=== PATIENT | female | born 1965 | race Caucasian/White ===

== ENCOUNTER 2019-10-31 02:47 | Inpatient (IN) | payer MEDICARE ==
[2019-10-31] MEDS ORDERED: Ketorolac Tromethamine 30 MG/ML VIAL ONE (04:23)
[2019-10-31] MEDS ORDERED: Oseltamivir 75 MG CAP PO SCH (06:15)
[2019-10-31 06:30] LABS: Troponin I 0.015 ng/mL (< 0.028)
[2019-10-31 06:31] LABS: ALT (SGPT) 11 U/L (8-55); AST (SGOT) 12 U/L (5-34); Albumin 3.5 g/dL (3.5-5.0); Alkaline Phosphatase 74 U/L (40-110); Anion Gap 13 mmol/L (10-20); BUN (Urea Nitrogen) 10 mg/dL (9.8-20.1); Bilirubin, Total 0.4 mg/dL (0.2-1.2); Calc. Creatinine Clearance 0 mL/min (70-130); Calcium 8.5 mg/dL (7.8-10.44); Carbon Dioxide 27 mmol/L (22-29); Chloride 97 mmol/L (98-107); Estimated GFR-MDRD 64; Globulin 2.8 g/dL (2.4-3.5); Glucose 112 mg/dL (70-105); Potassium 3.5 mmol/L (3.5-5.1); Protein, Total 6.3 g/dL (6.0-8.3); Sodium 133 mmol/L (136-145)
[2019-10-31 06:35] LABS: Lactic Acid 2.6 mmol/L (0.5-2.2)
[2019-10-31 06:58] LABS: #Basophils 0.1 thou/uL (0.0-0.2); #Lymphocytes 0.7 thou/uL (1.20-3.40); #Monocytes 0.3 thou/uL (0.11-0.59); #Neutrophils 8.4 thou/uL (1.40-6.50); %Basophils 0.6 % (0.0-1.0); %Eosinophils 0.5 % (0.0-10.0); %Lymphocytes 7.4 % (21.0-51.0); %Monocytes 3.1 % (0.0-10.0); %Neutrophils 88.4 % (42.0-75.0); Hemoglobin 14.2 g/dL (12.0-16.0); Mean Corpuscular HGB CONC 34.1 g/dL (32.0-36.0); Platelet Count 138 thou/uL (130-400); RBC Distribution Width 13.2 % (11.5-14.5); Red Blood Cell (RBC) Count 4.73 mill/uL (4.20-5.40); White Blood Cell (WBC) Count 9.5 thou/uL (4.8-10.8)
--- NOTE | 2019-10-31 07:49 | RAD ---
XR Chest 1 View Portable HISTORY: Influenza COMPARISON: None FINDINGS: The heart size is normal. The lungs are well expanded without focal areas of consolidation, pneumothorax or pleural effusions. IMPRESSION: No radiographic evidence of acute cardiopulmonary process.
[2019-10-31] MEDS ORDERED: Guaifenesin DM 100-10/5 ML UDCUP PO PRN (08:56)
[2019-10-31] MEDS ORDERED: Potassium Chloride 20 MEQ TAB PO SCH (09:00)
[2019-10-31] MEDS ORDERED: THYROID PORK 120 MG PO SCH (09:00)
--- NOTE | 2019-10-31 09:03 | PDOC.HHP ---
Hospitalist HPI - History of Present Illness Fever, cough History of Present Illness: 54/F recently diagnosed with strep throat infection presents to Emergency Department for above complaint. Patient reports developing fever last night, Tmax 103F and productive cough. Spouse reports that she was also lethargic at that time. Denies any focal weakness or tremors. He treated her fever with tylenol and called EMS. Patient denies any neck stiffness, SOB and chest pain. Reports some mild lower abdominal pain, denies any N/V/D or dysuria. Patient states that she completed Amoxicillin prescription yesterday, taking it for 7 days total. ED Course: T 103.2F BP 169/74 HR 131 HR RR 21 Sp02 93% RA Flu swab + Influenza A CXR negative for any acute cardiopulmonary process LA 2.6 Given Tamiflu 3L NS Hospitalist ROS - Review of Systems Constitutional: reports: fever, chills, malaise Eyes: denies: pain, vision change, conjunctivae inflammation, eyelid inflammation, redness, other ENT: denies: ear pain, ear discharge, nose pain, nose discharge, nose congestion , mouth pain, mouth swelling, throat pain, throat swelling, other Respiratory: reports: cough, sputum. denies: shortness of breath, hemoptysis Cardiovascular: denies: chest pain, palpitations, orthopnea, paroxysmal noc. dyspnea, edema, light headedness, other Gastrointestinal: reports: abdominal pain. denies: nausea, vomiting, diarrhea, constipation Genitourinary: denies: dysuria, frequency, incontinence, hematuria, retention, other Musculoskeletal: denies: neck pain, shoulder pain, back pain Skin: denies: rash, lesions Neurological: reports: weakness (generalized weakness). denies: numbness, change in speech, seizures Hospitalist History - Past Medical History Cardiac: reports: HTN Pulmonary: reports: no pertinent history DATA CENTER CONSULTANT: reports: Migraine (treated w/ Depakote) Gastrointestinal: reports: no pertinent history Heme/Onc: reports: no pertinent history Hepatobiliary: reports: no pertinent history Psych: reports: no pertinent history Musculoskeletal: reports: no pertinent history Rheumatologic: reports: no pertinent history Infectious Disease: reports: no pertinent history Renal/: reports: Other (Born with only right kidney) Endocrine: reports: Hypothyroidism Dermatology: reports: no pertinent history - Past Surgical History Past Surgical History: reports: Hysterectomy, Other (Ureteral re-implants x 2) - Family History Family History: reports: no pertinent history - Social History Smoking Status: Never smoker Alcohol: reports: None Living Situation: With Family (Recently moved to [place] 5 months ago) Activity level: independent ambulation - Exam General Appearance: NAD Eye: PERRL, anicteric sclera ENT: normocephalic atraumatic Neck: supple, no JVD, no thyromegaly, no lymphadenopathy Heart: RRR, no murmur, no gallops, no rubs, normal peripheral pulses Respiratory: CTAB, no wheezes, no rales, no ronchi Gastrointestinal: soft, non-tender, non-distended, normal bowel sounds, no hepatomegaly, no splenomegaly, no guarding, no rigidity Extremities: no cyanosis, no clubbing, no edema Skin: no lesions, no rashes Neurological: cranial nerve grossly intact, no focal deficits Musculoskeletal: normal tone Psychiatric: normal affect, A&O x 3 Hospitalist Results - Labs Result Diagrams: 10/31/19 03:12 10/31/19 03:12 Lab results: WBC 9.5 thou/uL (4.8-10.8) 10/31/19 03:12 Hgb 14.2 g/dL (12.0-16.0) 10/31/19 03:12 Hct 41.6 % (36.0-47.0) 10/31/19 03:12 MCV 88.0 fL (78.0-98.0) 10/31/19 03:12 Plt Count 138 thou/uL (130-400) 10/31/19 03:12 Neutrophils % 88.4 % (42.0-75.0) H 10/31/19 03:12 Sodium 133 mmol/L (136-145) L 10/31/19 03:12 Potassium 3.5 mmol/L (3.5-5.1) 10/31/19 03:12 Chloride 97 mmol/L (98-107) L 10/31/19 03:12 Carbon Dioxide 27 mmol/L (22-29) 10/31/19 03:12 BUN 10 mg/dL (9.8-20.1) 10/31/19 03:12 Creatinine 0.91 mg/dL (0.6-1.1) 10/31/19 03:12 Glucose 112 mg/dL (70-105) H 10/31/19 03:12 Lactic Acid 1.0 mmol/L (0.5-2.2) 10/31/19 08:25 Calcium 8.5 mg/dL (7.8-10.44) 10/31/19 03:12 Total Bilirubin 0.4 mg/dL (0.2-1.2) 10/31/19 03:12 AST 12 U/L (5-34) 10/31/19 03:12 ALT 11 U/L (8-55) 10/31/19 03:12 Alkaline Phosphatase 74 U/L (40-110) 10/31/19 03:12 Troponin I 0.015 ng/mL (< 0.028) 10/31/19 03:12 Serum Total Protein 6.3 g/dL (6.0-8.3) 10/31/19 03:12 Albumin 3.5 g/dL (3.5-5.0) 10/31/19 03:12 Laboratory Tests 10/31/19 10/31/19 03:12 03:12 Lactic Acid 2.6 H Troponin I 0.015 - EKG Interpretation EKG: Sinus Tachycardia - Radiology Interpretation Chest x-ray Status: report reviewed by me Hospitalist H&P A/P - Plan Plan: Influenza A Sepsis, most likely secondary to flu A Dehydration HTN hypothyroidism Renal agenesis, born one kidney Migraine headaches Plan: admit to medical floor Droplet precautions Continue IV fluids Continue Tamiflu Replace Potassium Fever control Mucinex and tessalon and Nebs prn Recheck LA level Awaiting UA results Walking program HH diet Restart home medications Avoid nephrotoxic medications DVT and GI prophylaxis Full Code
[2019-10-31] MEDS ORDERED: Potassium Chloride 20 MEQ TAB ONE (09:58)
[2019-10-31] MEDS ORDERED: Famotidine 20 MG TAB ONE (09:58)
[2019-10-31] MEDS: Sodium Chloride 0.9% 1,000 ML IV SCH ×3 (10:15→22:15)
[2019-10-31] MEDS: Famotidine 20 MG TAB PO SCH ×2 (10:15→19:30)
[2019-10-31] MEDS: Thyroid 60 MG TAB PO SCH (10:15)
[2019-10-31] MEDS: Ondansetron PF 4 MG/2 ML Vial IVP PRN (11:00)
[2019-10-31] MEDS ORDERED: Ondansetron ODT 4 MG TAB ONE (11:23)
[2019-10-31] MEDS: Ondansetron ODT 4 MG TAB PO PRN ×2 (11:56→19:29)
[2019-10-31 15:27] VITALS: BMI 27.8
[2019-10-31] MEDS: Acetaminophen 325 MG TAB PO PRN ×2 (16:45→22:20)
[2019-10-31] MEDS: Oseltamivir 75 MG CAP PO SCH (19:30)
[2019-10-31] MEDS ORDERED: Ibuprofen 200 MG TAB PO PRN (19:31)
[2019-10-31] MEDS ORDERED: Diabetic Tussin 200 MG/10 ML UDCUP PO PRN (19:40)
[2019-10-31 19:59] LABS: Bilirubin Negative (Negative); Blood, Urine Negative (Negative); Clarity Clear (Clear); Glucose, Urine (Dipstick) Normal (Negative); Leukocyte Negative Leu/uL (Negative); Nitrite Negative (Negative); Protein, Urine (Dipstick) 10 mg/dL (Neg-Trace); Urobilinogen Normal mg/dL (Less than 2)
[2019-10-31] MEDS ORDERED: cefTRIAXone\\ROCEPHIN 2 GM in Sodium Chloride 0.9% 100 ML IVPB SCH (20:00)
[2019-10-31] MEDS: Magnesium Chloride 64 MG TAB PO SCH (20:45)
[2019-10-31] MEDS: guaiFENesin ER 600 MG TAB PO SCH (20:46)
[2019-10-31] MEDS: Cefepime 1 GM in Sodium Chloride 0.9% 100 ML IVPB SCH (20:47)
[2019-10-31] MEDS ORDERED: Doxycycline 100 MG CAP PO SCH (21:00)
[2019-10-31] MEDS: Vancomycin HCl 1 GM in Premix Bag 1 BAG IVPB SCH (22:21)
--- NOTE | 2019-10-31 22:58 | PRG ---
DATE OF SERVICE: 10/31/2019 CHIEF COMPLAINT: Generalized weakness with fever. HISTORY OF PRESENT ILLNESS: The patient is a 54-year-old female with recent upper respiratory tract infection presented to the emergency room with fever along with productive cough. Her maximum temperature was 103 degree Fahrenheit. Her workup was positive for influenza A. Chest x-ray was negative. Lactic acid was 2.6. She continues to run fever at this time. PHYSICAL EXAMINATION: VITAL SIGNS: On examination, vital signs were reviewed. LUNGS: Showed scattered rhonchi without significant wheezing. There was scattered rales as well. HEART: S1 and S2 present. Tachycardic. ABDOMEN: Soft. Bowel sounds present. EXTREMITIES: No edema or calf tenderness. LABORATORY DATA: Labs were reviewed. Repeat lactic acid was 1.0. Troponin was negative. I reviewed the chest x-ray and the EKG, which showed sinus tachycardia. I evaluated the patient and agree with the history and physical outlined by nurse practitioner Devan Otero. I agree with the assessment and plan. She has sepsis secondary to influenza A with suspected pneumonia. We will repeat blood cultures and start empiric antibiotics due to persistent fever. We will consult Infectious Disease. The patient will require 2 to 3 days for stabilization. Job ID: [id number]
[2019-11-01] MEDS: Sodium Chloride 0.9% 1,000 ML IV SCH ×3 (04:30→15:25)
--- NOTE | 2019-11-01 08:56 | RAD ---
CHEST 2 VIEWS: HISTORY: Persistent fever. Evaluate for pneumonia. COMPARISON: None. FINDINGS: Lungs without confluent airspace consolidation, pneumothorax, or effusion. Cardiac silhouette and me diastinal contours are within normal limits. No acute osseous abnormality. IMPRESSION: 1. No acute intrathoracic abnormality. 2. Evidence of prior ventral repair with hernia repair tacks appreciated. POS: TPC
[2019-11-01] MEDS ORDERED: Amlodipine 5 MG TAB PO SCH ×2 (09:00)
[2019-11-01] MEDS ORDERED: FLU VACC QS2019-20(6MOS UP)/PF 60 MCG/0.5 ML SYRINGE IM ONE (09:00)
[2019-11-01] MEDS: Cefepime 1 GM in Sodium Chloride 0.9% 100 ML IVPB SCH ×2 (09:07→20:46)
[2019-11-01] MEDS: Famotidine 20 MG TAB PO SCH ×2 (09:09→20:48)
[2019-11-01] MEDS: Saccharomyces boulardii 250 MG CAP PO SCH (09:09)
[2019-11-01] MEDS: guaiFENesin ER 600 MG TAB PO SCH ×2 (09:10→20:48)
[2019-11-01] MEDS: Oseltamivir 75 MG CAP PO SCH ×2 (09:10→20:48)
[2019-11-01] MEDS: Thyroid 60 MG TAB PO SCH (09:11)
[2019-11-01] MEDS: Magnesium Chloride 64 MG TAB PO SCH (09:12)
[2019-11-01] MEDS ORDERED: Sodium Chloride 0.9% 500 ML IV SCH (09:30)
[2019-11-01] MEDS ORDERED: Magnesium 2 GM/50 ML 2 GM in Premix Bag 1 BAG IVPB SCH (09:30)
[2019-11-01] MEDS ORDERED: Magnesium Sulfate 2 GM in Sodium Chloride 0.9% 100 ML IVPB SCH (09:30)
[2019-11-01 09:47] LABS: ALT (SGPT) 19 U/L (8-55); AST (SGOT) 23 U/L (5-34); Albumin 2.9 g/dL (3.5-5.0); Alkaline Phosphatase 60 U/L (40-110); Anion Gap 9 mmol/L (10-20); BUN (Urea Nitrogen) 13 mg/dL (9.8-20.1); Bilirubin, Total 0.3 mg/dL (0.2-1.2); Calc. Creatinine Clearance 104 mL/min (70-130); Calcium 7.7 mg/dL (7.8-10.44); Carbon Dioxide 23 mmol/L (22-29); Chloride 111 mmol/L (98-107); Estimated GFR-MDRD 80; Globulin 2.4 g/dL (2.4-3.5); Glucose 130 mg/dL (70-105); Potassium 3.7 mmol/L (3.5-5.1); Protein, Total 5.3 g/dL (6.0-8.3); Sodium 139 mmol/L (136-145)
[2019-11-01] MEDS: Vancomycin HCl 1 GM in Premix Bag 1 BAG IVPB SCH ×2 (09:51→22:51)
[2019-11-01 09:54] LABS: #Monocytes 0.3 thou/uL (0.11-0.59); #Neutrophils 3.5 thou/uL (1.40-6.50); %Basophils 0.1 % (0.0-1.0); %Eosinophils 0.1 % (0.0-10.0); %Lymphocytes 20.4 % (21.0-51.0); %Monocytes 5.6 % (0.0-10.0); %Neutrophils 73.8 % (42.0-75.0); Hemoglobin 11.5 g/dL (12.0-16.0); Mean Corpuscular HGB CONC 33.7 g/dL (32.0-36.0); Mean Corpuscular Hemoglobin 30.1 pg (27.0-31.0); Mean Corpuscular Volume 89.2 fL (78.0-98.0); Mean Platelet Volume 8.7 fL (7.4-10.4); Platelet Count 106 thou/uL (130-400); Platelet Morphology Comment Appears Decreased; RBC Distribution Width 13.3 % (11.5-14.5); RBC Morphology Normal; Red Blood Cell (RBC) Count 3.83 mill/uL (4.20-5.40); White Blood Cell (WBC) Count 4.8 thou/uL (4.8-10.8)
[2019-11-01] MEDS ORDERED: Dextrose 5 %-0.45 % NaCl 1,000 ML IV SCH (13:00)
[2019-11-01] MEDS ORDERED: Zolpidem Tartrate 5 MG TAB PO PRN (13:39)
--- NOTE | 2019-11-01 16:19 | CON ---
DATE OF CONSULTATION: 11/01/2019 REASON FOR CONSULTATION: Possible sepsis. 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 She also had some sore throat at the beginning of this syndrome and went to a doctor and was given oral antimicrobial therapy for presumptive streptococcal pharyngitis. The patient did not improve, and then things got worse, and she was brought in with myalgias, persistence of cough with some sputum production, and intermittent headaches. No visual symptoms. No earache or sore throat anymore. No back pain. No chest pain. No abdominal pain. No genitourinary symptoms. No diarrhea, hematemesis, or melena. No joint symptoms. MEDICAL HISTORY: Hypothyroidism; hypertension; single kidney, congenital with ureteral reimplants; hysterectomy; and history of anxiety. SOCIAL HISTORY: Never smoker. Lives in [place]. She is disabled. ALLERGIES: 1. MORPHINE. 2. PHENERGAN. MEDICATIONS LIST: 1. P.R.N. medications. 2. Cefepime. 3. Pepcid. 4. Robitussin. 5. Mucinex. 6. Motrin. 7. Oseltamivir. 8. Vancomycin. PHYSICAL EXAMINATION: VITAL SIGNS: T-max 103, she is now 97.9. BP 99/64, pulse 84, respirations 20, O2 saturation 95% SKIN: Normal. The patient has peripheral IV access. She is voiding in the toilet. LYMPHATICS: No lymphadenopathy. HEENT: Ocular movements are conjugate. Sclerae are white. Pupils are somewhat constricted. Oral cavity is normal. Numerous teeth in place, in fairly decent shape. NECK: Supple. No jugular vein distention. LUNGS: Symmetric breath sounds. Inspiratory crackles in the right base. CARDIAC: S1 and S2. Regular rate. No S3 or S4. ABDOMEN: Soft. Not distended or tender. No ascites. No bladder distention. EXTREMITIES: No joint inflammatory activity. No edema. Pulses are 1+ in dorsalis pedis. Moves all extremities equally. Plantar responses are flexor. No clonus. NEUROLOGIC: She is quite somnolent, but is easily arousable and is oriented. Speech, somewhat sluggish from her drowsiness. LABORATORY DATA: White cell count 9.5 and 4.8, hemoglobin 11.5, platelets 106 with 73% neutrophils. Sodium 133, creatinine 0.91. Transaminases were normal. Albumin 3.5. Urinalysis was normal. Blood cultures, one set with coagulase-negative Staphylococcus, likely contaminant. Influenza A and B were positive for A antigen. Chest x-ray, no acute intrathoracic abnormality. ASSESSMENT: History of single kidney and respiratory illness for 8 days now, which is probably influenza A infection plus/minus superimposed bacterial pneumonia. We will check procalcitonin. If normal, then probably discontinue antimicrobials tomorrow if she is clinically stable. Continue monitoring blood cultures. The one set positive is probably contaminant. Continue Tamiflu, although at this late stage, the efficacy is reduced. Job ID: [id number] MTDD
--- NOTE | 2019-11-01 16:55 | PDOC.HOSPP ---
- Subjective Encounter Date: 11/01/19 Encounter Time: 14:30 - Objective Vital Signs & Weight: Vital Signs (12 hours) Temp Pulse Resp BP Pulse Ox 11/01/19 12:00 97.2 F L 84 20 99/64 95 11/01/19 09:10 81 11/01/19 09:00 92 L 11/01/19 07:56 97.9 F 81 20 97/59 L 91 L Weight Weight 172 lb 9.6 oz I&O: 10/31/19 11/01/19 11/02/19 06:59 06:59 06:59 Intake Total 1500 Output Total 600 Balance 900 Result Diagrams: 11/01/19 09:19 11/01/19 09:19 Hospitalist ROS - Review of Systems Constitutional: denies: fever, chills Respiratory: reports: cough, shortness of breath, hemoptysis Cardiovascular: reports: chest pain, palpitations Gastrointestinal: reports: nausea, vomiting, abdominal pain, diarrhea - Medication Medications: Active Medications Generic Name Dose Route Start Last Admin Trade Name Freq PRN Reason Stop Dose Admin Acetaminophen 650 mg 10/31/19 08:43 10/31/19 22:20 Tylenol PO 650 mg Q4H PRN Administration Headache/Fever/Mild Pain (1-3) Divalproex Sodium 250 mg 10/31/19 09:00 11/01/19 11:19 Depakote Er PO 250 mg DAILY NORBERT Administration Famotidine 20 mg 10/31/19 09:00 11/01/19 09:09 Pepcid PO 20 mg BID NORBERT Administration Guaifenesin 600 mg 10/31/19 21:00 11/01/19 09:10 Mucinex PO 600 mg Q12HR NORBERT Administration Vancomycin HCl 1 gm/ Device 200 mls @ 200 mls/hr 10/31/19 21:00 11/01/19 09: 51 IVPB 200 mls Q12HR NORBERT Administration Cefepime HCl 1 gm/ Sodium 100 mls @ 200 mls/hr 10/31/19 20:00 11/01/19 09:07 Chloride IVPB 100 mls 0800,2000 NORBERT Administration Sodium Chloride 1,000 mls @ 75 mls/hr 11/01/19 13:45 11/01/19 15:25 Normal Saline 0.9% IV Not Given .[id number] NORBERT Ibuprofen 400 mg 10/31/19 19:31 10/31/19 19:41 Motrin PO 400 mg Q6H PRN Administration Pain Ondansetron HCl 4 mg 10/31/19 11:39 10/31/19 19:29 Zofran Odt PO 4 mg Q6H PRN Administration Nausea/Vomiting Oseltamivir Phosphate 75 mg 10/31/19 21:00 11/01/19 09:10 Tamiflu PO 11/04/19 21:01 75 mg BID NORBERT Administration Saccharomyces Boulardii 250 mg 11/01/19 09:00 11/01/19 09:09 Florastor PO 250 mg DAILY NORBERT Administration Thyroid 120 mg 10/31/19 09:00 11/01/19 09:11 [place] Thyroid PO 120 mg DAILY NORBERT Administration - Exam General Appearance: NAD Heart: RRR, no murmur, no gallops, no rubs Respiratory: CTAB, no wheezes, no rales, no ronchi Gastrointestinal: soft, non-tender, non-distended, no guarding, no rigidity Psychiatric: normal affect, normal behavior Hosp A/P - Plan Afebrile today, Influenza A Sepsis, most likely secondary to flu A Suspected PNA Dehydration HTN hypothyroidism Renal agenesis, born one kidney Migraine headaches Plan: Started broad spectrum abx Awaiting repeat BC results Consult ID Continue Tamiflu and IV fluids Avoid nephrotoxic medications Continue DVT and GI prophylaxis Full Code
[2019-11-01] MEDS: Acetaminophen 325 MG TAB PO PRN ×2 (17:23→22:58)
[2019-11-01] MEDS: Baclofen 10 MG TAB PO SCH (20:48)
[2019-11-01] MEDS: Benzonatate 100 MG CAP PO PRN (22:58)
[2019-11-02 05:46] LABS: #Lymphocytes 1.5 thou/uL (1.20-3.40); #Monocytes 0.3 thou/uL (0.11-0.59); #Neutrophils 2.6 thou/uL (1.40-6.50); %Basophils 0.5 % (0.0-1.0); %Eosinophils 0.4 % (0.0-10.0); %Lymphocytes 33.2 % (21.0-51.0); %Monocytes 6.7 % (0.0-10.0); %Neutrophils 59.2 % (42.0-75.0); Hemoglobin 11.9 g/dL (12.0-16.0); Mean Corpuscular HGB CONC 33.1 g/dL (32.0-36.0); Mean Corpuscular Hemoglobin 30.1 pg (27.0-31.0); Mean Platelet Volume 8.7 fL (7.4-10.4); Platelet Count 105 thou/uL (130-400); RBC Distribution Width 13.4 % (11.5-14.5); Red Blood Cell (RBC) Count 3.95 mill/uL (4.20-5.40); White Blood Cell (WBC) Count 4.5 thou/uL (4.8-10.8)
[2019-11-02 06:06] LABS: ALT (SGPT) 14 U/L (8-55); AST (SGOT) 19 U/L (5-34); Albumin 2.9 g/dL (3.5-5.0); Alkaline Phosphatase 58 U/L (40-110); Anion Gap 8 mmol/L (10-20); BUN (Urea Nitrogen) 9 mg/dL (9.8-20.1); Bilirubin, Total 0.2 mg/dL (0.2-1.2); Calc. Creatinine Clearance 109 mL/min (70-130); Calcium 7.7 mg/dL (7.8-10.44); Carbon Dioxide 25 mmol/L (22-29); Chloride 111 mmol/L (98-107); Estimated GFR-MDRD 85; Globulin 2.5 g/dL (2.4-3.5); Glucose 88 mg/dL (70-105); Protein, Total 5.4 g/dL (6.0-8.3); Sodium 140 mmol/L (136-145)
[2019-11-02] MEDS: Sodium Chloride 0.9% 1,000 ML IV SCH ×2 (07:00→13:00)
[2019-11-02 08:06] LABS: Vancomycin, Trough 13.2 ug/mL
[2019-11-02] MEDS: Thyroid 60 MG TAB PO SCH (09:07)
[2019-11-02] MEDS: Baclofen 10 MG TAB PO SCH ×2 (09:07→20:05)
[2019-11-02] MEDS: Famotidine 20 MG TAB PO SCH ×2 (09:07→20:05)
[2019-11-02] MEDS: guaiFENesin ER 600 MG TAB PO SCH ×2 (09:07→20:06)
[2019-11-02] MEDS: Oseltamivir 75 MG CAP PO SCH ×2 (09:07→20:07)
[2019-11-02] MEDS: Cefepime 1 GM in Sodium Chloride 0.9% 100 ML IVPB SCH ×2 (09:08→20:04)
[2019-11-02] MEDS: Saccharomyces boulardii 250 MG CAP PO SCH (09:08)
[2019-11-02] MEDS: Vancomycin HCl 1.25 GM in Sodium Chloride 0.9% 250 ML 250 ML IVPB SCH ×2 (10:17→21:05)
--- NOTE | 2019-11-02 12:04 | PDOC.HOSPP ---
- Subjective Encounter Date: 11/02/19 Encounter Time: 11:05 Subjective: Patient seen and examined for sepsis, influenza A and clinical Pneumonia. Reports feeling better. Reports productive cough, Denies fever, chills, SOB, chest pain. No new complaints. No overnight events. - Objective Vital Signs & Weight: Vital Signs (12 hours) Temp Pulse Resp BP Pulse Ox 11/02/19 09:20 93 L 11/02/19 09:18 93 L 11/02/19 08:00 98.9 F 78 18 132/84 11/02/19 04:00 97.9 F Weight Weight 172 lb 9.6 oz I&O: 11/01/19 11/02/19 11/03/19 06:59 06:59 06:59 Intake Total 1500 2150 Output Total 600 Balance 900 2150 Result Diagrams: 11/02/19 05:11 11/02/19 05:11 Hospitalist ROS - Review of Systems Constitutional: denies: fever, chills, sweats, weakness, malaise, other Respiratory: reports: cough, sputum. denies: shortness of breath Cardiovascular: denies: chest pain, palpitations, orthopnea, paroxysmal noc. dyspnea, edema, light headedness, other Gastrointestinal: denies: nausea, vomiting, abdominal pain, diarrhea, constipation, melena, hematochezia, other - Medication Medications: Active Medications Generic Name Dose Route Start Last Admin Trade Name Freq PRN Reason Stop Dose Admin Acetaminophen 650 mg 10/31/19 08:43 11/01/19 22:58 Tylenol PO 650 mg Q4H PRN Administration Headache/Fever/Mild Pain (1-3) Baclofen 10 mg 11/01/19 21:00 11/02/19 09:07 Lioresal PO Not Given BID NORBERT Benzonatate 100 mg 10/31/19 08:56 11/01/19 22:58 Tessalon PO 100 mg TIDPRN PRN Administration Cough Divalproex Sodium 250 mg 10/31/19 09:00 11/02/19 09:07 Depakote Er PO 250 mg DAILY NORBERT Administration Famotidine 20 mg 10/31/19 09:00 11/02/19 09:07 Pepcid PO 20 mg BID NORBERT Administration Guaifenesin 600 mg 10/31/19 21:00 02/13/20 09:07 Mucinex PO 600 mg Q12HR NORBERT Administration Cefepime HCl 1 gm/ Sodium 100 mls @ 200 mls/hr 10/31/19 20:00 11/02/19 09:08 Chloride IVPB 100 mls 0800,2000 NORBERT Administration Sodium Chloride 1,000 mls @ 75 mls/hr 11/01/19 13:45 11/02/19 07:00 Normal Saline 0.9% IV 1,000 mls .[id number] NORBERT Administration Vancomycin HCl 1.25 gm/ Sodium 250 mls @ 166.667 mls/hr 11/02/19 09:00 10:17 Chloride IVPB 250 mls Q12HR NORBERT Administration Ibuprofen 400 mg 10/31/19 19:31 10/31/19 19:41 Motrin PO 400 mg Q6H PRN Administration Pain Ondansetron HCl 4 mg 10/31/19 11:39 10/31/19 19:29 Zofran Odt PO 4 mg Q6H PRN Administration Nausea/Vomiting Oseltamivir Phosphate 75 mg 10/31/19 21:00 11/02/19 09:07 Tamiflu PO 11/04/19 21:01 75 mg BID NORBERT Administration Quetiapine Fumarate 150 mg 11/01/19 21:00 11/01/19 20:47 Seroquel PO 150 mg HS NORBERT Administration Saccharomyces Boulardii 250 mg 11/01/19 09:00 11/02/19 09:08 Florastor PO 250 mg DAILY NORBERT Administration Sertraline HCl 100 mg 11/02/19 09:00 11/02/19 09:08 Zoloft PO 100 mg DAILY NORBERT Administration Thyroid 120 mg 10/31/19 09:00 11/02/19 09:07 [place] Thyroid PO 120 mg DAILY NORBERT Administration - Exam General Appearance: NAD, awake alert Heart: RRR, no murmur, no gallops, no rubs, normal peripheral pulses Respiratory: no wheezes, no ronchi, rales (scattered rales bilaterally) Gastrointestinal: soft, non-tender, non-distended, normal bowel sounds Psychiatric: normal affect, A&O x 3 Hosp A/P - Plan Afebrile today, Influenza A Sepsis, most likely secondary to flu A Clinical Pneumonia, suspected gram negative bacteria Dehydration, improving HTN, chronic hypothyroidism, chronic Renal agenesis, born one kidney Migraine headaches, chronic Plan: Continue abx Appreciate ID input Preliminary BC, no growth Continue Tamiflu and IV fluids Tessalon and guaifenesin prn Avoid nephrotoxic medications Continue DVT and GI prophylaxis
[2019-11-02] MEDS: Acetaminophen 325 MG TAB PO PRN (16:59)
--- NOTE | 2019-11-02 18:24 | RAD ---
Chest AP view INDICATION: History of influenza pneumonia COMPARISON: November 01, 2019 FINDINGS: Lungs:There is been interval development of airspace opacity in the right upper lobe consistent with developing right upper lobe pneumonia. Cardiac silhouette:The cardiomediastinal silhouette appears within normal limits. Pulmonary vasculature:Normal Pleural spaces:No pleural effusion or pneumothorax is demonstrated. Upper abdomen:Surgical mesh of the upper abdomen Osseous structures: No acute osseous abnormality. Additional findings:None. IMPRESSION: Developing right upper lobe pneumonia. Recommend radiographic follow-up to resolution.
[2019-11-03 05:58] LABS: #Lymphocytes 1.6 thou/uL (1.20-3.40); #Monocytes 0.3 thou/uL (0.11-0.59); #Neutrophils 1.7 thou/uL (1.40-6.50); %Basophils 0.5 % (0.0-1.0); %Eosinophils 1.1 % (0.0-10.0); %Lymphocytes 44.4 % (21.0-51.0); %Monocytes 7.8 % (0.0-10.0); %Neutrophils 46.2 % (42.0-75.0); Mean Corpuscular HGB CONC 33.6 g/dL (32.0-36.0); Mean Corpuscular Hemoglobin 30.2 pg (27.0-31.0); Mean Corpuscular Volume 89.8 fL (78.0-98.0); Mean Platelet Volume 9.3 fL (7.4-10.4); Platelet Count 88 thou/uL (130-400); RBC Distribution Width 13.3 % (11.5-14.5); Red Blood Cell (RBC) Count 3.65 mill/uL (4.20-5.40); White Blood Cell (WBC) Count 3.6 thou/uL (4.8-10.8)
[2019-11-03 06:13] LABS: Anion Gap 8 mmol/L (10-20); BUN (Urea Nitrogen) 8 mg/dL (9.8-20.1); Calc. Creatinine Clearance 114 mL/min (70-130); Calcium 7.8 mg/dL (7.8-10.44); Carbon Dioxide 28 mmol/L (22-29); Chloride 109 mmol/L (98-107); Estimated GFR-MDRD 90; Glucose 89 mg/dL (70-105); Potassium 4.1 mmol/L (3.5-5.1); Sodium 141 mmol/L (136-145)
[2019-11-03] MEDS: Cefepime 1 GM in Sodium Chloride 0.9% 100 ML IVPB SCH (08:12)
[2019-11-03] MEDS: Thyroid 60 MG TAB PO SCH (08:12)
[2019-11-03] MEDS: Saccharomyces boulardii 250 MG CAP PO SCH (08:13)
[2019-11-03] MEDS: Famotidine 20 MG TAB PO SCH ×2 (08:13→19:36)
[2019-11-03] MEDS: guaiFENesin ER 600 MG TAB PO SCH ×2 (08:13→19:35)
[2019-11-03] MEDS: Baclofen 10 MG TAB PO SCH ×2 (08:13→19:36)
[2019-11-03] MEDS: Oseltamivir 75 MG CAP PO SCH ×2 (08:14→19:36)
[2019-11-03] MEDS: Sodium Chloride 0.9% 1,000 ML IV SCH (08:27)
[2019-11-03] MEDS: Benzonatate 100 MG CAP PO PRN (08:27)
[2019-11-03] MEDS: Vancomycin HCl 1.25 GM in Sodium Chloride 0.9% 250 ML 250 ML IVPB SCH ×2 (08:28→21:04)
--- NOTE | 2019-11-03 09:15 | PRG ---
DATE OF SERVICE: 11/02/2019 SUBJECTIVE: The patient had been feeling better, but now after 3 o'clock, started feeling worse again, just general malaise, weakness but no leg pain, no headaches, mild cough, some dyspnea. OBJECTIVE: VITAL SIGNS: T-max of 102.6 yesterday. Today max 99.2 and she may be on the way up of having a fever. Blood pressure 160/78, pulse 78, respirations 18, and O2 saturation 94%. GENERAL: She appears better than yesterday. oriented. HEENT: Her ocular movements are conjugate. LUNGS: With faint inspiratory crackles here and there. HEART: S1 and S2. Regular rate. ABDOMEN: Soft, not distended or tender. No ascites. No bladder distention. EXTREMITIES: Moves extremities equally. LABORATORY DATA: White cell count 4.5, hemoglobin 11.9, platelets 105 with 59% neutrophils. Total lymphocyte count is 1.5. Creatinine 0.71. Liver profile normal. Urinalysis normal. Microbiology with the contaminated blood cultures in one set. The repeat one has had no growth at 48 hours, and the procalcitonin was elevated at 4.11 yesterday. ASSESSMENT AND DISCUSSION: Single kidney with respiratory illness for 8 days now, which is probably influenza A possible or likely superimposed bacterial pneumonia in view of the procalcitonin. We will continue IV antimicrobials as currently and follow up progress. Whenever she gets better, then transition oral regimen either doxycycline or quinolone for discharge planning. Repeat chest x- ray tomorrow. Job ID: [id number] MTDD
[2019-11-03] MEDS: Amlodipine 5 MG TAB PO SCH ×2 (09:16→19:35)
[2019-11-03] MEDS: Diabetic Tussin 200 MG/10 ML UDCUP PO PRN ×2 (12:15→17:27)
[2019-11-03] MEDS: Acetaminophen 325 MG TAB PO PRN (12:15)
[2019-11-03] MEDS: Cepastat Lozenges 1 LOZ PO PRN ×2 (13:14→17:28)
--- NOTE | 2019-11-03 16:08 | PRG ---
DATE OF SERVICE: 11/03/2019 SUBJECTIVE: Had a temperature elevation just before. Discharge planning had been initiated, having pain at the IV site in the left upper extremity. Still with coughing spells and no dyspnea. Feels crackling noises when she takes deep breath. No abdominal pain or diarrhea. No genitourinary symptoms. OBJECTIVE: VITAL SIGNS: T-max 102.3 just a while ago. She had been afebrile since November 01 and O2 saturation 92%, which is still quite low. GENERAL: Awake, alert, and oriented. Mobility is good. LUNGS: With very faint wheezing. Few crackles here and there, but nothing focal. HEART: S1 and S2, regular rate. ABDOMEN: Soft. Not distended. EXTREMITIES: Left forearm IV access is tender to palpation, but there is no erythema, some induration noted in the vein. Remainder of the examination is not remarkable including abdomen. Lower extremities are okay. LABORATORY DATA: White cell count 3.6, hemoglobin 11, platelets 88 with 46% neutrophils. Sodium 141 and creatinine 0.68. She is currently on cefepime, famotidine, oseltamivir, and vancomycin. The chest x-ray from yesterday with right upper lobe infiltrate. ASSESSMENT AND DISCUSSION: Single kidney with respiratory illness for 8 days now, secondary to influenza A with superimposed bacterial pneumonia likely. After a period of resolution of temperature elevation, now she had a sudden spike and the differential diagnosis includes phlebitis either chemical or infectious phlebitis versus resistant pathogen in the respiratory tract. She does have worsening thrombocytopenia and she is not on Lovenox. We will recommend exchanging the peripheral IV access that is tender right now and switch to midline. Continue antimicrobial therapy. We will switch her to meropenem from cefepime. Continue vancomycin. Job ID: [id number]
[2019-11-03] MEDS: MEROPENEM 1 GM/50 ML 1 GM in Premix Bag 1 BAG IVPB SCH (17:28)
[2019-11-03 20:21] LABS: Vancomycin, Trough 14.7 ug/mL
--- NOTE | 2019-11-03 22:52 | PDOC.HOSPP ---
- Subjective Encounter Date: 11/03/19 Encounter Time: 09:00 Subjective: Patient seen and examined for Sepsis. Feels weak. Intermittent low grade fever. No new complaints. No overnight events - Objective Vital Signs & Weight: Vital Signs (12 hours) Temp Pulse Resp BP BP Pulse Ox 11/03/19 20:00 84 L 11/03/19 19:47 99.3 F 99 18 136/74 85 L 11/03/19 19:35 93 136/74 11/03/19 15:00 99.7 F H 11/03/19 12:00 102.3 F H Weight Weight 172 lb 9.6 oz I&O: 11/02/19 11/03/19 11/04/19 06:59 06:59 06:59 Intake Total 2150 1350 Balance 2150 1350 Result Diagrams: 11/03/19 05:19 11/03/19 05:19 Radiology Reviewed by me: Yes (CXR - Pneumonia) Hospitalist ROS - Review of Systems Respiratory: denies: cough, dry, shortness of breath, hemoptysis, SOB with excertion, pleuritic pain, sputum, wheezing, other Cardiovascular: denies: chest pain, palpitations, orthopnea, paroxysmal noc. dyspnea, edema, light headedness, other - Medication Medications: Active Medications Generic Name Dose Route Start Last Admin Trade Name Freq PRN Reason Stop Dose Admin Acetaminophen 650 mg 10/31/19 08:43 11/03/19 12:15 Tylenol PO 650 mg Q4H PRN Administration Headache/Fever/Mild Pain (1-3) Amlodipine Besylate 2.5 mg 11/03/19 09:00 11/03/19 19:35 Norvasc PO 2.5 mg BID NORBERT Administration Baclofen 20 mg 11/03/19 21:00 11/03/19 19:36 Lioresal PO 20 mg HS NORBERT Administration Benzonatate 100 mg 10/31/19 08:56 11/03/19 08:27 Tessalon PO 100 mg TIDPRN PRN Administration Cough Divalproex Sodium 250 mg 10/31/19 09:00 11/03/19 08:15 Depakote Er PO 250 mg DAILY NORBERT Administration Famotidine 20 mg 10/31/19 09:00 11/03/19 19:36 Pepcid PO 20 mg BID NORBERT Administration Guaifenesin 600 mg 10/31/19 21:00 11/03/19 19:35 Mucinex PO 600 mg Q12HR NORBERT Administration Guaifenesin 200 mg 11/03/19 11:25 11/03/19 17:27 Robitussin Sf PO 200 mg Q4H PRN Administration Cough Vancomycin HCl 1.25 gm/ Sodium 250 mls @ 166.667 mls/hr 11/02/19 09:00 21:04 Chloride IVPB 250 mls Q12HR NORBERT Administration Sodium Chloride 1,000 mls @ 50 mls/hr 11/02/19 13:05 11/03/19 08:27 Normal Saline 0.9% IV 1,000 mls .Q20H NORBERT Administration Meropenem 1 gm/ Device 50 mls @ 100 mls/hr 11/03/19 16:00 11/03/19 17:28 IVPB 50 mls 0800,1600,2359 NORBERT Administration Ibuprofen 400 mg 10/31/19 19:31 10/31/19 19:41 Motrin PO 400 mg Q6H PRN Administration Pain Ondansetron HCl 4 mg 10/31/19 11:39 10/31/19 19:29 Zofran Odt PO 4 mg Q6H PRN Administration Nausea/Vomiting Oseltamivir Phosphate 75 mg 10/31/19 21:00 11/03/19 19:36 Tamiflu PO 11/04/19 21:01 75 mg BID NORBERT Administration Quetiapine Fumarate 150 mg 11/01/19 21:00 11/03/19 19:35 Seroquel PO 150 mg HS NORBERT Administration Saccharomyces Boulardii 250 mg 11/01/19 09:00 11/03/19 08:13 Florastor PO 250 mg DAILY NORBERT Administration Sertraline HCl 100 mg 11/02/19 09:00 11/03/19 08:15 Zoloft PO 100 mg DAILY NORBERT Administration Throat Lozenges 1 ely 11/03/19 11:25 11/03/19 17:28 Cepastat Lozenges PO 1 ely Q2H PRN Administration Sore Throat Thyroid 120 mg 10/31/19 09:00 11/03/19 08:12 [place] Thyroid PO 120 mg DAILY NORBERT Administration - Exam General Appearance: NAD Neck: supple, no JVD Heart: no gallops, no rubs Respiratory: rales, rhonchi Gastrointestinal: non-tender, non-distended, normal bowel sounds Extremities: no edema Hosp A/P - Plan DVT proph w/SCDs Sepsis due to Influenza A with [place] Pneumonia ?gramnegative Dehydration, improving HTN, chronic hypothyroidism, chronic Renal agenesis, born one kidney Migraine headaches, chronic Plan: Continue Vancomycin Cont Cefepime Blood culture negative Continue Tamiflu Cont IV fluids Cont other meds
[2019-11-04] MEDS: MEROPENEM 1 GM/50 ML 1 GM in Premix Bag 1 BAG IVPB SCH ×4 (00:50→23:22)
[2019-11-04] MEDS: Sodium Chloride 0.9% 1,000 ML IV SCH ×2 (04:21→19:57)
[2019-11-04 05:43] LABS: #Lymphocytes 1.6 thou/uL (1.20-3.40); #Monocytes 0.6 thou/uL (0.11-0.59); #Neutrophils 2.2 thou/uL (1.40-6.50); %Eosinophils 0.4 % (0.0-10.0); %Lymphocytes 35.6 % (21.0-51.0); %Monocytes 13.9 % (0.0-10.0); Hemoglobin 11.4 g/dL (12.0-16.0); Mean Corpuscular HGB CONC 34.4 g/dL (32.0-36.0); Mean Corpuscular Hemoglobin 30.8 pg (27.0-31.0); Mean Corpuscular Volume 89.5 fL (78.0-98.0); Mean Platelet Volume 9.3 fL (7.4-10.4); Platelet Count 87 thou/uL (130-400); RBC Distribution Width 13.3 % (11.5-14.5); Red Blood Cell (RBC) Count 3.71 mill/uL (4.20-5.40); White Blood Cell (WBC) Count 4.4 thou/uL (4.8-10.8)
[2019-11-04 05:52] LABS: Anion Gap 9 mmol/L (10-20); BUN (Urea Nitrogen) 8 mg/dL (9.8-20.1); Calc. Creatinine Clearance 108 mL/min (70-130); Calcium 8.2 mg/dL (7.8-10.44); Carbon Dioxide 31 mmol/L (22-29); Chloride 107 mmol/L (98-107); Estimated GFR-MDRD 84; Glucose 90 mg/dL (70-105); Potassium 4.3 mmol/L (3.5-5.1); Sodium 143 mmol/L (136-145)
[2019-11-04] MEDS: Saccharomyces boulardii 250 MG CAP PO SCH (08:41)
[2019-11-04] MEDS: Amlodipine 5 MG TAB PO SCH ×2 (08:41→19:51)
[2019-11-04] MEDS: Famotidine 20 MG TAB PO SCH ×2 (08:41→19:52)
[2019-11-04] MEDS: guaiFENesin ER 600 MG TAB PO SCH ×2 (08:41→19:52)
[2019-11-04] MEDS: Oseltamivir 75 MG CAP PO SCH ×2 (08:43→19:52)
[2019-11-04] MEDS: Thyroid 60 MG TAB PO SCH (08:46)
[2019-11-04] MEDS: Diabetic Tussin 200 MG/10 ML UDCUP PO PRN (09:07)
[2019-11-04] MEDS: Acetaminophen 325 MG TAB PO PRN (09:13)
[2019-11-04] MEDS: Vancomycin HCl 1.25 GM in Sodium Chloride 0.9% 250 ML 250 ML IVPB SCH ×2 (09:15→19:55)
--- NOTE | 2019-11-04 17:34 | EKG ---
Test Reason : SEPSIS Blood Pressure : / mmHG Vent. Rate : 131 BPM Atrial Rate : 131 BPM P-R Int : 128 ms QRS Dur : 078 ms QT Int : 312 ms P-R-T Axes : 049 048 057 degrees QTc Int : 460 ms Sinus tachycardia Nonspecific ST abnormality Abnormal ECG Confirmed by ADEOLA WARNER M.D. ([id number]), book editor REKHA RAMIREZ ([id number]) on 11/04/2019 5:34:03 PM Referred By: Confirmed By:ADEOLA WARNER M.D.
--- NOTE | 2019-11-04 18:15 | PDOC.HOSPP ---
- Subjective Encounter Date: 11/04/19 Encounter Time: 09:00 Subjective: no overnight events. This morning, complains of continued cough with sputum production, diffuse body ache, that hasn't been improving. Otherwise no complaints. - Objective Vital Signs & Weight: Vital Signs (12 hours) Temp Pulse Resp BP Pulse Ox 11/04/19 08:41 73 11/04/19 08:00 99.6 F 76 15 126/75 93 L Weight Weight 172 lb 9.6 oz I&O: 11/03/19 11/04/19 11/05/19 06:59 06:59 06:59 Intake Total 1350 800 Balance 1350 800 Result Diagrams: 11/04/19 04:57 11/04/19 04:57 Hospitalist ROS - Review of Systems Constitutional: reports: chills, sweats, weakness, malaise. denies: fever Respiratory: reports: cough, pleuritic pain, sputum. denies: hemoptysis, SOB with excertion, wheezing Cardiovascular: denies: chest pain, palpitations, orthopnea, paroxysmal noc. dyspnea, edema, light headedness, other Gastrointestinal: denies: nausea, vomiting, abdominal pain, diarrhea, constipation, melena, hematochezia, other Genitourinary: denies: dysuria, frequency, incontinence, hematuria, retention, other Neurological: reports: weakness - Medication Medications: Active Medications Generic Name Dose Route Start Last Admin Trade Name Freq PRN Reason Stop Dose Admin Acetaminophen 650 mg 10/31/19 08:43 11/04/19 09:13 Tylenol PO 650 mg Q4H PRN Administration Headache/Fever/Mild Pain (1-3) Amlodipine Besylate 2.5 mg 11/03/19 09:00 11/04/19 08:41 Norvasc PO 2.5 mg BID NORBERT Administration Baclofen 20 mg 11/03/19 21:00 11/03/19 19:36 Lioresal PO 20 mg HS NORBERT Administration Benzonatate 100 mg 10/31/19 08:56 11/03/19 08:27 Tessalon PO 100 mg TIDPRN PRN Administration Cough Divalproex Sodium 250 mg 10/31/19 09:00 11/04/19 08:46 Depakote Er PO 250 mg DAILY NORBERT Administration Famotidine 20 mg 10/31/19 09:00 11/04/19 08:41 Pepcid PO 20 mg BID NORBERT Administration Guaifenesin 600 mg 10/31/19 21:00 11/04/19 08:41 Mucinex PO 600 mg Q12HR NORBERT Administration Guaifenesin 200 mg 11/03/19 11:25 11/04/19 09:07 Robitussin Sf PO 200 mg Q4H PRN Administration Cough Vancomycin HCl 1.25 gm/ Sodium 250 mls @ 166.667 mls/hr 11/02/19 09:00 09:15 Chloride IVPB 250 mls Q12HR NORBERT Administration Sodium Chloride 1,000 mls @ 50 mls/hr 11/02/19 13:05 11/04/19 04:21 Normal Saline 0.9% IV Not Given .Q20H NORBERT Meropenem 1 gm/ Device 50 mls @ 100 mls/hr 11/03/19 16:00 11/04/19 16:12 IVPB 50 mls 0800,1600,2359 NORBERT Administration Ibuprofen 400 mg 10/31/19 19:31 10/31/19 19:41 Motrin PO 400 mg Q6H PRN Administration Pain Ondansetron HCl 4 mg 10/31/19 11:39 10/31/19 19:29 Zofran Odt PO 4 mg Q6H PRN Administration Nausea/Vomiting Oseltamivir Phosphate 75 mg 10/31/19 21:00 11/04/19 08:43 Tamiflu PO 11/04/19 21:01 75 mg BID NORBERT Administration Quetiapine Fumarate 150 mg 11/01/19 21:00 11/03/19 19:35 Seroquel PO 150 mg HS NORBERT Administration Saccharomyces Boulardii 250 mg 11/01/19 09:00 11/04/19 08:41 Florastor PO 250 mg DAILY NORBERT Administration Sertraline HCl 100 mg 11/02/19 09:00 11/04/19 08:41 Zoloft PO 100 mg DAILY NORBERT Administration Throat Lozenges 1 ely 11/03/19 11:25 11/03/19 17:28 Cepastat Lozenges PO 1 ely Q2H PRN Administration Sore Throat Thyroid 120 mg 10/31/19 09:00 11/04/19 08:46 [place] Thyroid PO 120 mg DAILY NORBERT Administration - Exam General Appearance: NAD, awake alert Neck: no JVD Heart: RRR, no murmur, no gallops, no rubs, normal peripheral pulses Respiratory: CTAB (with exception of bibasilar inspiratory crackles), no wheezes , no rales, no ronchi, normal chest expansion, no tachypnea, normal percussion Gastrointestinal: soft, non-tender, non-distended, normal bowel sounds, no palpable masses, no hepatomegaly, no splenomegaly, no bruit Extremities: no edema Neurological: cranial nerve grossly intact Musculoskeletal: normal tone, normal strength Psychiatric: normal affect, normal behavior, A&O x 3 Hosp A/P - Plan #Inluenza A -breathing and satting well on RA -last fever 11/03 -currently on vanc, amandeep, and oseltamivir -persistent fever likely due to inflammatory sequalae of influenza pneumonia rather than bacterial infection; fever can persist for a few days despite oseltamivir treatment -bacterial infectious workup negative so far; no respiratory culture available -Xray (11/02): worsning diffuse reticunodular infiltrates Plan: -repeat CXR -continue current regimen; may require prolonged oseltamivir treatment; will reassess necessity for continued ABx -supportive care dispo/code status: full code GI PPX: no indication DVT PPX: patient ambulating multiple times daily; no indication
[2019-11-04] MEDS: Baclofen 10 MG TAB PO SCH (19:52)
[2019-11-05] MEDS: Cepastat Lozenges 1 LOZ PO PRN ×2 (04:53→10:09)
[2019-11-05 05:18] LABS: Anion Gap 8 mmol/L (10-20); BUN (Urea Nitrogen) 7 mg/dL (9.8-20.1); Calc. Creatinine Clearance 129 mL/min (70-130); Calcium 8.1 mg/dL (7.8-10.44); Carbon Dioxide 28 mmol/L (22-29); Chloride 109 mmol/L (98-107); Estimated GFR-MDRD Greater than 90; Glucose 91 mg/dL (70-105); Magnesium 1.9 mg/dL (1.6-2.6); Potassium 4.3 mmol/L (3.5-5.1); Sodium 141 mmol/L (136-145)
[2019-11-05 05:22] LABS: Mean Corpuscular Volume 90.6 fL (78.0-98.0)
[2019-11-05 06:11] LABS: Hemoglobin 10.9 g/dL (12.0-16.0); Mean Corpuscular HGB CONC 33.7 g/dL (32.0-36.0); Mean Corpuscular Hemoglobin 30.5 pg (27.0-31.0); Mean Platelet Volume 9.7 fL (7.4-10.4); Platelet Count 88 thou/uL (130-400); RBC Distribution Width 13.2 % (11.5-14.5); Red Blood Cell (RBC) Count 3.58 mill/uL (4.20-5.40); White Blood Cell (WBC) Count 3.6 thou/uL (4.8-10.8)
[2019-11-05 07:09] LABS: Band 5 % (5-11); Eosinophils 1 % (0-10); Lymphocytes 45 % (21-51); MDiff Complete? YES; Monocytes 10 % (0-10); Neutrophil 39 % (42-75); Platelet Morphology Comment Appears Decreased
[2019-11-05] MEDS: Sodium Chloride 0.9% 1,000 ML IV SCH (07:45)
[2019-11-05] MEDS: MEROPENEM 1 GM/50 ML 1 GM in Premix Bag 1 BAG IVPB SCH ×3 (07:50→23:31)
[2019-11-05] MEDS: guaiFENesin ER 600 MG TAB PO SCH ×2 (07:54→19:55)
[2019-11-05] MEDS: Famotidine 20 MG TAB PO SCH ×2 (07:54→19:55)
[2019-11-05] MEDS: Saccharomyces boulardii 250 MG CAP PO SCH (07:54)
[2019-11-05] MEDS: Amlodipine 5 MG TAB PO SCH ×2 (07:54→19:53)
[2019-11-05] MEDS: Thyroid 60 MG TAB PO SCH (07:56)
--- NOTE | 2019-11-05 07:57 | RAD ---
PORTABLE SEMIUPRIGHT FRONTAL CHEST RADIOGRAPH: 11/05/2019 HISTORY: Pneumonia. COMPARISON: 11/02/2019 FINDINGS: There is worsening air space disease within the right upper lobe with developing inferior right upper lobe consolidation. There is also worsening aeration/air space disease within the right lung base. T he left lung appears relatively clear. IMPRESSION: Worsening air space disease within the right lung suggesting worsening multilobar infectious pneumoni tis/aspiration. Follow-up imaging to document resolution advised. POS: MELIH
[2019-11-05 08:22] LABS: Vancomycin, Trough 16.5 ug/mL
[2019-11-05] MEDS: Oseltamivir 75 MG CAP PO SCH ×2 (09:30→19:55)
[2019-11-05] MEDS: Vancomycin HCl 1.25 GM in Sodium Chloride 0.9% 250 ML 250 ML IVPB SCH ×2 (09:30→19:55)
[2019-11-05] MEDS: Diabetic Tussin 200 MG/10 ML UDCUP PO PRN (10:09)
[2019-11-05] MEDS: Azithromycin 500 MG in Sodium Chloride 0.9% 250 ML 250 ML IVPB SCH (12:02)
[2019-11-05] MEDS: Furosemide 40 MG/4 ML VIAL SLOW IVP SCH (12:02)
[2019-11-05] MEDS: Ondansetron PF 4 MG/2 ML Vial IVP PRN (12:56)
--- NOTE | 2019-11-05 13:48 | PRG ---
DATE OF SERVICE: 11/05/2019 SUBJECTIVE: The patient desaturated to 84 this morning and she is still having some coughing spells. No headaches. No sore throat. No abdominal pain or diarrhea. No genitourinary symptoms. O2 has been administered via nasal cannula. She is able to ambulate. OBJECTIVE: GENERAL: Awake, alert, oriented. Does not appear in distress. HEENT: The ocular movements are conjugate. Oral cavity is normal. LUNGS: The right upper lobe has abnormal lung sounds with crackles, some egophony. The remainder of her lungs appears to be okay. There are some crackles in the left upper lobe as well. HEART: S1 and S2 regular rate. No S3 or S4. ABDOMEN: Soft. Not distended or tender. No ascites. No bladder distention. No joint inflammatory activity. Moves extremities equally. LABORATORY DATA: White cell count is 3.6, hemoglobin 10.9, platelets 88, 39% neutrophils, 45% lymphocytes, and chemistry with a creatinine 0.6, sodium 141. Cultures no growth. Repeat chest x-ray shows the airspace disease in the right lung, worsening. ASSESSMENT AND DISCUSSION: Single kidney, respiratory illness for 8 days with influenza A, likely superimposed bacterial pneumonia or could be just influenza A pneumonitis. She does have a low total white cell count and thrombocytopenia, which are seen in more severe cases of influenza A and seem to correlate with the severity of illness. We will have to continue on broad-spectrum coverage and have Dr. Avendaño take a look at this patient because of the worsening O2 saturations. Job ID: [id number]
[2019-11-05 14:15] LABS: Legionella Urinary Ag Negative (Negative); Strep pneumo Urine Ag NEGATIVE (NEGATIVE)
[2019-11-05] MEDS: methylPREDNISolone Sod Succ 40 MG VIAL IVP SCH ×2 (17:49→23:31)
[2019-11-05] MEDS ORDERED: methylPREDNISolone Sod Succ/PF 125 MG/2 ML VIAL IVP SCH (18:00)
--- NOTE | 2019-11-05 18:46 | CON ---
DATE OF CONSULTATION: 11/05/2019 HISTORY OF PRESENT ILLNESS: Ms. Denson is a 54-year-old female, who started out with strep throat and got flu, then got pneumonia. I was consulted because of persistent hypoxemia. She said this morning, she felt a little bit worse, but this afternoon she is feeling better than she felt this morning. She is afebrile. PAST MEDICAL HISTORY: Not obtained. FAMILY HISTORY: Non contributory. SOCIAL HISTORY: Non contributory. REVIEW OF SYSTEMS: 10 point review of systems completed, otherwise negative. PHYSICAL EXAMINATION: VITAL SIGNS: Heart rate in the 70s, oximetry is in the mid 90s on a cannula at 3 L, and blood pressure 141/72. HEENT: Pupils are equal. Sclerae are anicteric. NECK: Supple. LUNGS: Clear with the exception of crackles at the right base. She also has E- A changes at the right base. HEART: Regular rhythm. S1 and S2 are normal. ABDOMEN: Soft and nontender. EXTREMITIES: Without clubbing, cyanosis, or edema. NEURO: Nonfocal. LABORATORY DATA: Chest radiograph shows patchy alveolar infiltrate predominantly involving the right lung. White count 3.6, hemoglobin 10.9, and platelets 88, 000. Electrolytes are unremarkable. IMPRESSION AND PLAN: Post influenza pneumonia. She clinically looks stable, although she remains a little hypoxemic and not surprisingly has radiographic progression of her infiltrates. Her antimicrobial therapy has been adjusted. I would recommend adding steroids and nebulizer treatments. I think she can stay on the medical scott. She does not appear to be acutely ill. This is a 50 minute consult, with greater than 50% of time spent on unit coordinating care. Job ID: [id number] [facility]
--- NOTE | 2019-11-05 18:56 | PDOC.HOSPP ---
- Subjective Encounter Date: 11/05/19 Encounter Time: 08:00 Subjective: overnight, increased oxygen demand however patient appears well and has no dyspnea. Complains of continued nonpruductive cough but otherwise no complaints. During encounter satting 92% on RA. CXR shows increased diffuse markings however underpenetrated compared to previous CXR. However, there is mildly increased patchy infiltration. - Objective Vital Signs & Weight: Vital Signs (12 hours) Temp Pulse Resp BP Pulse Ox 11/05/19 17:02 98.5 F 81 18 127/77 95 11/05/19 08:02 98.5 F 87 20 141/72 H 84 L 11/05/19 08:00 84 L 11/05/19 07:54 76 Weight Weight 172 lb 9.6 oz I&O: 11/04/19 11/05/19 11/06/19 06:59 06:59 06:59 Intake Total 1280 1440 Balance 1280 1440 Result Diagrams: 11/05/19 04:41 11/05/19 04:41 Radiology Reviewed by me: Yes Hospitalist ROS - Review of Systems Constitutional: denies: fever, chills, sweats, weakness, malaise, other Respiratory: reports: cough, dry. denies: shortness of breath, hemoptysis, SOB with excertion, pleuritic pain, sputum, wheezing, other Cardiovascular: denies: chest pain, palpitations, orthopnea, paroxysmal noc. dyspnea, edema, light headedness, other Gastrointestinal: denies: nausea, vomiting, abdominal pain, diarrhea, constipation, melena, hematochezia, other Genitourinary: denies: dysuria, frequency, incontinence, hematuria, retention, other Neurological: denies: weakness, numbness, incoordination, change in speech, confusion, seizures, other - Medication Medications: Active Medications Generic Name Dose Route Start Last Admin Trade Name Freq PRN Reason Stop Dose Admin Acetaminophen 650 mg 10/31/19 08:43 11/04/19 09:13 Tylenol PO 650 mg Q4H PRN Administration Headache/Fever/Mild Pain (1-3) Albuterol/Ipratropium 3 ml 11/05/19 15:00 11/05/19 17:31 Duoneb NEB Not Given [id number] NORBERT Amlodipine Besylate 2.5 mg 11/03/19 09:00 11/05/19 07:54 Norvasc PO 2.5 mg BID NORBERT Administration Baclofen 20 mg 11/03/19 21:00 11/04/19 19:52 Lioresal PO 20 mg HS NORBERT Administration Benzonatate 100 mg 10/31/19 08:56 11/03/19 08:27 Tessalon PO 100 mg TIDPRN PRN Administration Cough Divalproex Sodium 250 mg 10/31/19 09:00 11/05/19 07:55 Depakote Er PO 250 mg DAILY NORBERT Administration Famotidine 20 mg 10/31/19 09:00 11/05/19 07:54 Pepcid PO 20 mg BID NORBERT Administration Furosemide 40 mg 11/05/19 09:00 11/05/19 12:02 Lasix SLOW IVP 40 mg DAILY NORBERT Administration Guaifenesin 600 mg 10/31/19 21:00 11/05/19 07:54 Mucinex PO 600 mg Q12HR NORBERT Administration Vancomycin HCl 1.25 gm/ Sodium 250 mls @ 166.667 mls/hr 11/02/19 09:00 09:30 Chloride IVPB 250 mls Q12HR NORBERT Administration Meropenem 1 gm/ Device 50 mls @ 100 mls/hr 11/03/19 16:00 11/05/19 17:49 IVPB 50 mls 0800,1600,2359 NORBERT Administration Azithromycin 500 mg/ Sodium 250 mls @ 250 mls/hr 11/05/19 11:00 11/05/19 12: 02 Chloride IVPB 250 mls Q24HR NORBERT Administration Ibuprofen 400 mg 10/31/19 19:31 10/31/19 19:41 Motrin PO 400 mg Q6H PRN Administration Pain Methylprednisolone Sodium Succinate 40 mg 11/05/19 18:00 11/05/19 17:49 Solu-Medrol IVP 40 mg Q6HR NORBERT Administration Ondansetron HCl 4 mg 10/31/19 11:39 10/31/19 19:29 Zofran Odt PO 4 mg Q6H PRN Administration Nausea/Vomiting Ondansetron HCl 4 mg 10/31/19 11:39 11/05/19 12:56 Zofran IVP 4 mg Q6H PRN Administration Nausea/Vomiting Oseltamivir Phosphate 75 mg 11/05/19 09:00 11/05/19 09:30 Tamiflu PO 11/09/19 21:01 75 mg BID NORBERT Administration Quetiapine Fumarate 150 mg 11/01/19 21:00 11/04/19 19:52 Seroquel PO 150 mg HS NORBERT Administration Saccharomyces Boulardii 250 mg 11/01/19 09:00 11/05/19 07:54 Florastor PO 250 mg DAILY NORBERT Administration Sertraline HCl 100 mg 11/02/19 09:00 11/05/19 07:54 Zoloft PO 100 mg DAILY NORBERT Administration Throat Lozenges 1 ely 11/03/19 11:25 11/05/19 10:09 Cepastat Lozenges PO 1 ely Q2H PRN Administration Sore Throat - Exam General Appearance: NAD, awake alert, ill appearing Eye: PERRL, anicteric sclera ENT: normocephalic atraumatic Neck: no JVD Heart: no murmur, no gallops, no rubs, normal peripheral pulses Heart - other findings: regular rhythm, tachycardic Respiratory: CTAB, no wheezes, no ronchi, normal chest expansion, no tachypnea Respiratory - other findings: mild inspiratory rales to mid lung delgado; saturating 92% on 4L NC Gastrointestinal: soft, non-tender, non-distended, normal bowel sounds, no palpable masses, no hepatomegaly, no splenomegaly, no bruit Extremities: 1+ LE edema Extremities - other findings: mild b/l LE pitting edema Neurological: cranial nerve grossly intact Psychiatric: normal affect, normal behavior, A&O x 3 Hosp A/P - Plan #Inluenza A -breathing and satting well on RA -last fever 11/03 -currently on vanc, amandeep, and oseltamivir -persistent fever likely due to inflammatory sequalae of influenza pneumonia rather than bacterial infection; fever can persist for a few days despite oseltamivir treatment -bacterial infectious workup negative so far; no respiratory culture available -Xray (11/02): worsning diffuse reticunodular infiltrates; xray (11/05) underpenetrated compared to previous xray however mild worsening of diffuse infiltrates Plan: -holding IV fluids and gave lasix considering hemodynamically stable and likely extravasation of fluids into airways due to pneumonia-induced inflammation; -will continue oseltamivir considering severe and prolonged symptoms and increased oxygen demand; spirometry; keep oxygen > 92% -will continue ABx for now and reassess indication as patient improves clinically -MICU consulted for possible pending ARDS; appreciated recommendations and started methylprednisolone as per their recs -supportive care dispo/code status: full code GI PPX: no indication DVT PPX: patient ambulating multiple times daily; no indication
[2019-11-05] MEDS: Baclofen 10 MG TAB PO SCH (19:55)
[2019-11-06] MEDS: methylPREDNISolone Sod Succ 40 MG VIAL IVP SCH ×3 (05:30→17:55)
[2019-11-06] MEDS: Thyroid 60 MG TAB PO SCH (05:34)
[2019-11-06 05:37] LABS: #Lymphocytes 0.7 thou/uL (1.20-3.40); #Monocytes 0.2 thou/uL (0.11-0.59); %Eosinophils 0.4 % (0.0-10.0); %Lymphocytes 22.5 % (21.0-51.0); %Monocytes 6.3 % (0.0-10.0); %Neutrophils 70.8 % (42.0-75.0); Hemoglobin 11.6 g/dL (12.0-16.0); Mean Corpuscular Hemoglobin 30.4 pg (27.0-31.0); Mean Corpuscular Volume 89.5 fL (78.0-98.0); Mean Platelet Volume 10.1 fL (7.4-10.4); Platelet Count 132 thou/uL (130-400); RBC Distribution Width 12.9 % (11.5-14.5); White Blood Cell (WBC) Count 2.9 thou/uL (4.8-10.8)
[2019-11-06 05:54] LABS: Anion Gap 12 mmol/L (10-20); BUN (Urea Nitrogen) 10 mg/dL (9.8-20.1); Calc. Creatinine Clearance 125 mL/min (70-130); Calcium 8.8 mg/dL (7.8-10.44); Carbon Dioxide 25 mmol/L (22-29); Chloride 107 mmol/L (98-107); Estimated GFR-MDRD Greater than 90; Glucose 132 mg/dL (70-105); Potassium 4.2 mmol/L (3.5-5.1); Sodium 140 mmol/L (136-145)
--- NOTE | 2019-11-06 08:10 | RAD ---
EXAM: CHEST ONE VIEW HISTORY: Pneumonia, increased oxygen demand. COMPARISON: 11/05/2019 FINDINGS: Cardiac silhouette is within normal limits. There is mild improvement in aeration in the right upper lobe compared to the prior study. However, persistent interstitial and patchy parenchymal densities are again seen in the right upper lobe as well as right lower lung zone. Findings are suggestive of i mproving pneumonia/aspiration pneumonitis. The left lung remains clear. No other interval change. IMPRESSION: Increased interstitial and patchy airspace opacities within the right upper and lower lung zones with improvement in consolidation right upper lobe suggesting improving pneumonia. However, continued follow-up to resolution is recommended.
[2019-11-06] MEDS: Furosemide 40 MG/4 ML VIAL SLOW IVP SCH (08:28)
[2019-11-06] MEDS: MEROPENEM 1 GM/50 ML 1 GM in Premix Bag 1 BAG IVPB SCH ×2 (08:29→17:55)
[2019-11-06] MEDS: Amlodipine 5 MG TAB PO SCH ×2 (08:38→20:07)
[2019-11-06] MEDS: Oseltamivir 75 MG CAP PO SCH ×2 (08:38→20:08)
[2019-11-06] MEDS: Saccharomyces boulardii 250 MG CAP PO SCH (08:38)
[2019-11-06] MEDS: Famotidine 20 MG TAB PO SCH ×2 (08:38→20:08)
[2019-11-06] MEDS: guaiFENesin ER 600 MG TAB PO SCH ×2 (08:38→20:06)
[2019-11-06] MEDS: Vancomycin HCl 1.25 GM in Sodium Chloride 0.9% 250 ML 250 ML IVPB SCH ×2 (09:58→21:52)
--- NOTE | 2019-11-06 12:25 | PRG ---
DATE OF SERVICE: 11/06/2019 SUBJECTIVE: Anabell Denson remains afebrile. OBJECTIVE: VITAL SIGNS: Heart rates in the 70s, respiratory rates in the teens, oximetry is 95% to 98%, blood pressure 129/63. LUNGS: Still remarkable for fine crackles at the right base. HEART: Regular rhythm. ABDOMEN: Soft and nontender. EXTREMITIES: Without edema. IMPRESSION: Post influenza pneumonia, clinically stable. PLAN: Continue antimicrobial therapy per Infectious Disease. Job ID: [id number]
[2019-11-06] MEDS: Azithromycin 500 MG in Sodium Chloride 0.9% 250 ML 250 ML IVPB SCH (12:37)
--- NOTE | 2019-11-06 13:38 | PRG ---
DATE OF SERVICE: 11/06/2019 SUBJECTIVE: Dr. Avendaño has evaluated the patient. His impression was post influenza pneumonia and steroids were added plus nebulizer treatments. She states she is feeling better resulting from that intervention most likely. Denies any headaches. No chest pain or diarrhea. OBJECTIVE: VITAL SIGNS: Temperature have stabilized as expected. O2 saturations are better now at 98 with 4 L nasal cannula. LUNGS: With quite prominent inspiratory crackles particularly on the right hemithorax as expected. HEART: S1, S2, regular rate. ABDOMEN: Soft, not distended or tender. NEUROLOGIC: Nonfocal. LABORATORY DATA: Legionella and Strep pneumoniae antigen negative. White cell count is at 2.9, hemoglobin 11, platelets 132. Chemistry with a creatinine 0.62, sodium 140. Microbiology with negative blood cultures from October 31, final result. ASSESSMENT AND DISCUSSION: Single kidney, respiratory illness for 8 days with influenza A and likely superimposed bacterial pneumonia with exacerbation, now better on steroids and inhalers. Thrombocytopenia has improved as well, which I believe is secondary to the severe influenza infection. Continue current management. Job ID: [id number]
[2019-11-06] MEDS: Baclofen 10 MG TAB PO SCH (20:04)
[2019-11-06 20:33] LABS: Vancomycin, Trough 15.9 ug/mL
--- NOTE | 2019-11-06 23:04 | PDOC.HOSPP ---
- Subjective Encounter Date: 11/06/19 Encounter Time: 09:00 Subjective: no overnighte events. Patient feeling much better in terms of energy, coughing persists. breathing better and satting 95% on RA during encounter. - Objective Vital Signs & Weight: Vital Signs (12 hours) Temp Pulse Resp BP BP Pulse Ox 11/06/19 20:15 98.1 F 99 20 138/68 93 L 11/06/19 20:07 82 138/68 11/06/19 18:47 92 L 11/06/19 13:48 82 18 93 L Weight Weight 172 lb 9.6 oz I&O: 11/05/19 11/06/19 11/07/19 06:59 06:59 06:59 Intake Total 1280 1840 Balance 1280 1840 Result Diagrams: 11/06/19 04:47 11/06/19 04:47 Hospitalist ROS - Review of Systems Constitutional: reports: weakness, malaise. denies: fever, chills, sweats, other Respiratory: reports: cough, dry. denies: shortness of breath, hemoptysis, SOB with excertion, pleuritic pain, sputum, wheezing Cardiovascular: denies: chest pain, palpitations, orthopnea, paroxysmal noc. dyspnea, edema, light headedness Gastrointestinal: denies: nausea, vomiting, abdominal pain, diarrhea, constipation, melena, hematochezia Neurological: denies: weakness, numbness, incoordination - Medication Medications: Active Medications Generic Name Dose Route Start Last Admin Trade Name Freq PRN Reason Stop Dose Admin Acetaminophen 650 mg 10/31/19 08:43 11/04/19 09:13 Tylenol PO 650 mg Q4H PRN Administration Headache/Fever/Mild Pain (1-3) Albuterol/Ipratropium 3 ml 11/05/19 15:00 11/06/19 20:26 Duoneb NEB Not Given [id number] NORBERT Amlodipine Besylate 2.5 mg 11/03/19 09:00 11/06/19 20:07 Norvasc PO 2.5 mg BID NORBERT Administration Baclofen 20 mg 11/03/19 21:00 11/06/19 20:04 Lioresal PO 20 mg HS NORBERT Administration Benzonatate 100 mg 10/31/19 08:56 11/03/19 08:27 Tessalon PO 100 mg TIDPRN PRN Administration Cough Divalproex Sodium 250 mg 10/31/19 09:00 11/06/19 08:38 Depakote Er PO 250 mg DAILY NORBERT Administration Famotidine 20 mg 10/31/19 09:00 11/06/19 20:08 Pepcid PO 20 mg BID NORBERT Administration Furosemide 40 mg 11/05/19 09:00 11/06/19 08:28 Lasix SLOW IVP 40 mg DAILY NORBERT Administration Guaifenesin 600 mg 10/31/19 21:00 11/06/19 20:06 Mucinex PO 600 mg Q12HR NORBERT Administration Vancomycin HCl 1.25 gm/ Sodium 250 mls @ 166.667 mls/hr 11/02/19 09:00 21:52 Chloride IVPB 250 mls Q12HR NORBERT Administration Meropenem 1 gm/ Device 50 mls @ 100 mls/hr 11/03/19 16:00 11/06/19 17:55 IVPB 50 mls 0800,1600,2359 NORBERT Administration Azithromycin 500 mg/ Sodium 250 mls @ 250 mls/hr 11/05/19 11:00 11/06/19 12: 37 Chloride IVPB 250 mls Q24HR NORBERT Administration Ibuprofen 400 mg 10/31/19 19:31 10/31/19 19:41 Motrin PO 400 mg Q6H PRN Administration Pain Methylprednisolone Sodium Succinate 40 mg 11/05/19 18:00 11/06/19 17:55 Solu-Medrol IVP 40 mg Q6HR NORBERT Administration Ondansetron HCl 4 mg 10/31/19 11:39 10/31/19 19:29 Zofran Odt PO 4 mg Q6H PRN Administration Nausea/Vomiting Ondansetron HCl 4 mg 10/31/19 11:39 11/05/19 12:56 Zofran IVP 4 mg Q6H PRN Administration Nausea/Vomiting Oseltamivir Phosphate 75 mg 11/05/19 09:00 11/06/19 20:08 Tamiflu PO 11/09/19 21:01 75 mg BID NORBERT Administration Quetiapine Fumarate 150 mg 11/01/19 21:00 11/06/19 20:06 Seroquel PO 150 mg HS NORBERT Administration Saccharomyces Boulardii 250 mg 11/01/19 09:00 11/06/19 08:38 Florastor PO 250 mg DAILY NORBERT Administration Sertraline HCl 100 mg 11/02/19 09:00 11/06/19 08:38 Zoloft PO 100 mg DAILY NORBERT Administration Sodium Chloride 10 ml 10/31/19 08:43 11/06/19 08:30 Flush - Normal Saline IVF 10 ml Q12HR PRN Administration Saline Flush Throat Lozenges 1 ely 11/03/19 11:25 11/05/19 10:09 Cepastat Lozenges PO 1 ely Q2H PRN Administration Sore Throat Thyroid 120 mg 11/06/19 06:00 11/06/19 05:34 [place] Thyroid PO 120 mg 0600 NORBERT Administration - Exam General Appearance: NAD, awake alert Eye: PERRL ENT: normocephalic atraumatic Neck: supple, symmetric, no JVD Heart: RRR, no murmur, no gallops, normal peripheral pulses Respiratory: no wheezes, no ronchi Respiratory - other findings: inspiratory rales throuhgout, mostly midfields and lower Gastrointestinal: soft, non-tender, non-distended, normal bowel sounds, no palpable masses, no hepatomegaly, no splenomegaly, no bruit Extremities: no edema Psychiatric: normal affect, normal behavior, A&O x 3 Hosp A/P - Plan #Inluenza A -breathing and satting well on RA (11/06) -last fever 11/03 -currently on vanc, amandeep, and oseltamivir -persistent fever likely due to inflammatory sequalae of influenza pneumonia rather than bacterial infection; fever can persist for a few days despite oseltamivir treatment -bacterial infectious workup negative so far; no respiratory culture available -Xray (11/02): worsning diffuse reticunodular infiltrates; xray (11/05) underpenetrated compared to previous xray however mild worsening of diffuse infiltrates; Xray 11/06 unchanged Plan: -holding IV fluids and gave lasix considering hemodynamically stable and likely extravasation of fluids into airways due to pneumonia-induced inflammation; -will continue oseltamivir considering severe and prolonged symptoms and increased oxygen demand; spirometry; keep oxygen > 92% -will continue ABx for now and reassess indication as patient improves clinically -MICU consulted for possible pending ARDS; appreciated recommendations and started methylprednisolone as per their recs -Appreciated infectious disease recs dispo/code status: full code GI PPX: no indication DVT PPX: patient ambulating multiple times daily; no indication
[2019-11-07] MEDS: methylPREDNISolone Sod Succ 40 MG VIAL IVP SCH ×3 (00:55→12:48)
[2019-11-07] MEDS: MEROPENEM 1 GM/50 ML 1 GM in Premix Bag 1 BAG IVPB SCH ×3 (01:00→16:49)
[2019-11-07] MEDS: Thyroid 60 MG TAB PO SCH (06:49)
[2019-11-07] MEDS: Oseltamivir 75 MG CAP PO SCH ×2 (09:38→19:41)
[2019-11-07] MEDS: Saccharomyces boulardii 250 MG CAP PO SCH (09:38)
[2019-11-07] MEDS: guaiFENesin ER 600 MG TAB PO SCH ×2 (09:38→19:39)
[2019-11-07] MEDS: Amlodipine 5 MG TAB PO SCH ×2 (09:39→19:39)
[2019-11-07] MEDS: Famotidine 20 MG TAB PO SCH ×2 (09:40→19:39)
[2019-11-07] MEDS: Furosemide 40 MG/4 ML VIAL SLOW IVP SCH (09:40)
[2019-11-07] MEDS: Vancomycin HCl 1.25 GM in Sodium Chloride 0.9% 250 ML 250 ML IVPB SCH (10:36)
[2019-11-07] MEDS: Azithromycin 500 MG in Sodium Chloride 0.9% 250 ML 250 ML IVPB SCH (12:47)
--- NOTE | 2019-11-07 16:35 | PRG ---
DATE OF SERVICE: SUBJECTIVE: The patient is tearful by the bedside, but feeling better, otherwise less cough, having problems with restless legs syndrome at night. No sputum production. No abdominal pain or diarrhea. OBJECTIVE: VITAL SIGNS: She had T-max 99.6, blood pressure 128/67, pulse 84, respirations 16, O2 saturation 98. GENERAL: The patient is again tearful, but she kind of recomposed herself a little bit. LUNGS: With still few inspiratory crackles on the right side, mostly in the left side is clear. No wheezing. HEART: S1 and S2. Regular rate. ABDOMEN: Soft, not distended. EXTREMITIES: Moves all extremities equally. LABORATORY DATA: White cell count is 2.9, hemoglobin 11.6, platelets 132, this is from yesterday and no new chemistry values. Blood culture, no growth at final of 5 days. ASSESSMENT AND DISCUSSION: Single kidney, respiratory illness with influenza A positive test likely possible superimposed bacterial pneumonia, now improved on steroids and inhalers, improved thrombocytopenia. It is possible that the entire syndrome was caused by just a severe influenza A infection with pneumonia and transition to doxycycline now for deescalation and then tapering steroids and discharge planning to be considered in the next 24 to 48 hours. Job ID: [id number]
--- NOTE | 2019-11-07 16:37 | PDOC.HOSPP ---
- Subjective Encounter Date: 11/07/19 Encounter Time: 08:00 Subjective: no overnight events. Continues to improve. breathing and satting well on RA. Coughing less frequently. Has no other complaints. - Objective Vital Signs & Weight: Vital Signs (12 hours) Temp Pulse Resp BP Pulse Ox 11/07/19 13:48 84 16 98 11/07/19 11:08 85 16 98 11/07/19 09:39 87 11/07/19 08:01 87 18 97 11/07/19 08:00 97.6 F 84 20 128/67 95 Weight Weight 172 lb 9.6 oz I&O: 11/06/19 11/07/19 11/08/19 06:59 06:59 06:59 Intake Total 1840 Balance 1840 Result Diagrams: 11/06/19 04:47 11/06/19 04:47 Radiology Reviewed by me: Yes (reticular and small nodular infiltrates c/w influenza pneumonia) Hospitalist ROS - Review of Systems Constitutional: denies: fever, chills, sweats, weakness, malaise, other Respiratory: denies: cough, dry, shortness of breath, hemoptysis, SOB with excertion, pleuritic pain, sputum, wheezing, other Cardiovascular: denies: chest pain, palpitations, orthopnea, paroxysmal noc. dyspnea, edema, light headedness, other Gastrointestinal: denies: nausea, vomiting, abdominal pain, diarrhea, constipation, melena, hematochezia, other Genitourinary: denies: hematuria Neurological: denies: weakness, numbness, incoordination, change in speech, confusion, seizures, other - Medication Medications: Active Medications Generic Name Dose Route Start Last Admin Trade Name Freq PRN Reason Stop Dose Admin Acetaminophen 650 mg 10/31/19 08:43 11/04/19 09:13 Tylenol PO 650 mg Q4H PRN Administration Headache/Fever/Mild Pain (1-3) Albuterol/Ipratropium 3 ml 11/05/19 15:00 11/07/19 13:48 Duoneb NEB 3 ml [id number] NORBERT Administration Amlodipine Besylate 2.5 mg 11/03/19 09:00 11/07/19 09:39 Norvasc PO 2.5 mg BID NORBERT Administration Baclofen 20 mg 11/03/19 21:00 11/06/19 20:04 Lioresal PO 20 mg HS NORBERT Administration Benzonatate 100 mg 10/31/19 08:56 11/03/19 08:27 Tessalon PO 100 mg TIDPRN PRN Administration Cough Divalproex Sodium 250 mg 10/31/19 09:00 11/07/19 09:40 Depakote Er PO 250 mg DAILY NORBERT Administration Famotidine 20 mg 10/31/19 09:00 11/07/19 09:40 Pepcid PO 20 mg BID NORBERT Administration Furosemide 40 mg 11/05/19 09:00 11/07/19 09:40 Lasix SLOW IVP 40 mg DAILY NORBERT Administration Guaifenesin 600 mg 10/31/19 21:00 11/07/19 09:38 Mucinex PO 600 mg Q12HR NORBERT Administration Ibuprofen 400 mg 10/31/19 19:31 10/31/19 19:41 Motrin PO 400 mg Q6H PRN Administration Pain Ondansetron HCl 4 mg 10/31/19 11:39 10/31/19 19:29 Zofran Odt PO 4 mg Q6H PRN Administration Nausea/Vomiting Ondansetron HCl 4 mg 10/31/19 11:39 11/05/19 12:56 Zofran IVP 4 mg Q6H PRN Administration Nausea/Vomiting Oseltamivir Phosphate 75 mg 11/05/19 09:00 11/07/19 09:38 Tamiflu PO 11/09/19 21:01 75 mg BID NORBERT Administration Quetiapine Fumarate 150 mg 11/01/19 21:00 11/06/19 20:06 Seroquel PO 150 mg HS NORBERT Administration Saccharomyces Boulardii 250 mg 11/01/19 09:00 11/07/19 09:38 Florastor PO 250 mg DAILY NROBERT Administration Sertraline HCl 100 mg 11/02/19 09:00 11/07/19 09:38 Zoloft PO 100 mg DAILY NORBERT Administration Sodium Chloride 10 ml 10/31/19 08:43 11/06/19 08:30 Flush - Normal Saline IVF 10 ml Q12HR PRN Administration Saline Flush Throat Lozenges 1 ely 11/03/19 11:25 11/05/19 10:09 Cepastat Lozenges PO 1 ely Q2H PRN Administration Sore Throat Thyroid 120 mg 11/06/19 06:00 11/07/19 06:49 [place] Thyroid PO 120 mg 0600 NORBERT Administration - Exam General Appearance: NAD, awake alert Neck: no JVD Heart: RRR, no murmur, no gallops, no rubs, normal peripheral pulses Respiratory: CTAB, no wheezes, no ronchi, normal chest expansion, no tachypnea Respiratory - other findings: mild inspiratory rales in lower lung delgado, much improved lung sound Gastrointestinal: soft, non-tender, non-distended, normal bowel sounds Extremities: no edema Psychiatric: normal behavior, A&O x 3 Psychiatric - other findings: tearful Hosp A/P - Plan #Inluenza A -breathing and satting well on RA (11/06) -last fever 11/03 -currently on vanc, amandeep, and oseltamivir -persistent fever likely due to inflammatory sequalae of influenza pneumonia rather than bacterial infection; fever can persist for a few days despite oseltamivir treatment -bacterial infectious workup negative so far; no respiratory culture available -Xray (11/02): worsning diffuse reticunodular infiltrates; xray (11/05) underpenetrated compared to previous xray however mild worsening of diffuse infiltrates; Xray 11/06 unchanged - reticular and small nodular opacities c/w influenza pneumonia and sequalae Plan: -will continue oseltamivir, stop IV ABx, start doxycycline per ID -patient appears emotionally labile; may be a result of high dose steroids; will reduce dose and transition to oral prednisone -nurse advised to restart IV antibiotics if patient decompensates -Appreciate ID and Pulmonology recs dispo/code status: full code GI PPX: no indication DVT PPX: patient ambulating multiple times daily; no indication
[2019-11-07] MEDS: predniSONE 20 MG TAB PO SCH (17:55)
--- NOTE | 2019-11-07 19:23 | PRG ---
DATE OF SERVICE: 11/07/2019 SUBJECTIVE: Anabell Richards remains afebrile. She says she is feeling well. OBJECTIVE: VITAL SIGNS: Oximetry is up in the 90s now on room air. LUNGS: Clear. HEART: Regular rhythm. ABDOMEN: Soft. EXTREMITIES: Without asymmetry. LABORATORY DATA: No new lab today. IMPRESSION: Post influenza pneumonia, clinically improved. In my opinion, she could be switched to p.o. antimicrobial therapy and discharged home. I will be happy to see her in 3 to 4 weeks with a chest x-ray. I would taper prednisone over 10 to 14 days. I would continue antibiotics per Infectious Disease recommendations. Job ID: [id number]
[2019-11-07] MEDS: Doxycycline 100 MG CAP PO SCH (19:39)
[2019-11-07] MEDS: Baclofen 10 MG TAB PO SCH (19:41)
[2019-11-08] MEDS ORDERED: rOPINIRole HCl 0.25 MG TAB PO SCH (03:15)
[2019-11-08] MEDS: Thyroid 60 MG TAB PO SCH (05:11)
[2019-11-08 06:25] LABS: #Lymphocytes 1.3 thou/uL (1.20-3.40); #Monocytes 0.5 thou/uL (0.11-0.59); #Neutrophils 5.3 thou/uL (1.40-6.50); %Basophils 0.3 % (0.0-1.0); %Eosinophils 0.1 % (0.0-10.0); %Lymphocytes 18.2 % (21.0-51.0); %Monocytes 7.2 % (0.0-10.0); %Neutrophils 74.4 % (42.0-75.0); Hemoglobin 11.6 g/dL (12.0-16.0); Mean Corpuscular Hemoglobin 29.6 pg (27.0-31.0); Mean Corpuscular Volume 89.6 fL (78.0-98.0); Mean Platelet Volume 9.7 fL (7.4-10.4); Platelet Count 205 thou/uL (130-400); RBC Distribution Width 13.1 % (11.5-14.5); Red Blood Cell (RBC) Count 3.91 mill/uL (4.20-5.40); White Blood Cell (WBC) Count 7.1 thou/uL (4.8-10.8)
[2019-11-08 06:48] LABS: Anion Gap 12 mmol/L (10-20); BUN (Urea Nitrogen) 16 mg/dL (9.8-20.1); Calc. Creatinine Clearance 132 mL/min (70-130); Calcium 9.1 mg/dL (7.8-10.44); Carbon Dioxide 28 mmol/L (22-29); Chloride 106 mmol/L (98-107); Estimated GFR-MDRD Greater than 90; Glucose 106 mg/dL (70-105); Magnesium 2.1 mg/dL (1.6-2.6); Sodium 142 mmol/L (136-145)
[2019-11-08] MEDS: Doxycycline 100 MG CAP PO SCH (08:09)
[2019-11-08] MEDS: Saccharomyces boulardii 250 MG CAP PO SCH (08:10)
[2019-11-08] MEDS: Famotidine 20 MG TAB PO SCH (08:10)
[2019-11-08] MEDS: Amlodipine 5 MG TAB PO SCH (08:10)
[2019-11-08] MEDS: predniSONE 20 MG TAB PO SCH (08:10)
[2019-11-08] MEDS: guaiFENesin ER 600 MG TAB PO SCH (08:11)
[2019-11-08] MEDS: Oseltamivir 75 MG CAP PO SCH (08:11)
[2019-11-08 16:37] VITALS: BP 159/83; TEMP 98.1
--- NOTE | 2019-11-09 06:13 | PQF ---
DANTE SO, ADAM [id number] CLINICAL DOCUMENTATION CLARIFICATION FORM: POST DISCHARGE Addendum to original discharge summary date: ____ Late entry note date: __ DATE:11/09/2019 ATTN: Adam Mckinney Please exercise your independent, professional judgment in responding to the clarification form. Clinical indicators are provided on the bottom of this form for your review Please check appropriate box(s) to clarify if the following diagnosis has been ruled in or ruled out: Sepsis [ ] Ruled in diagnosis [ ] Continue to treat [ ] Resolved [ x] Ruled out diagnosis [ ] Cannot rule out diagnosis [ ] Other diagnosis [ ] Unable to determine In addition, please specify: Present on Admission (POA): [ x] Yes [ ] No [ ] Unable to determine For continuity of documentation, please document condition throughout progress notes and discharge summary. Thank You. CLINICAL INDICATORS - SIGNS / SYMPTOMS / LABS Laboratory 10/31 WBC 9.5, Plat count 138, Neutrophils 88.4, Lactic acid 2.6 Laboratory 11/02 WBC 4.5, Plat count 105, Neutrophils 59.2, Prolactin 4.11 Microbiology 10/31 Blood Culture positive with Coagulase Neg Staphylococcus; Nasal Swab positive with Influenza A Vital signs 10/31 BP 111/54, Pulse 131. Resp 23, Temp 102.2 ED notes p2 10/31 Pt did meet Criteria H&P p1 10/31 Shanna LEAD PROGRAMMER ANALYST-C Pt reports developing fever last night, Tmax 103F and productive cough. Spouse reports that she was also lethargic at that time H&P p1 10/31 Shanna LEAD PROGRAMMER ANALYST-C recently diagnose with strep throat infection presents to ED for Fever and cough H&P p4 10/31 Shanna LEAD PROGRAMMER ANALYST-C Sepsis most likely secondary to Flu A Hospitalist p6 11/03 Dr Kim Sepsis due to Influenza with CA Pneumonia ? Gramnegative Hospitalist p6 11/04 Dr Oakley persistent fever likely due to inflammatory sequelae of influenza pneumonia rather than bacterial infection. Bacterial infection workup negative so far. RISK FACTORS H&P p4 10/31 Influenza A H&P p4 10/31 Dehydration H&P p4 10/31 Hypothyroidism H&P p4 10/31 HTN Hospitalist p6 11/03 Pneumonia TREATMENTS NOV 19 IV Cefepime 1gm NOV 19 Tamiflu 75 mg po NOV 19 Robitussin 200 mg po NOV 19 IVF 3L NOV 19 IV Vancomycin 1.25 gm NOV 19 DuoNeb 3ml Neb NOV 19 IV Azithromycin 500mg NOV 19 Vibramycin 100mg po BID NOV 19 Prednisone 40 mg po Blood Culture and Nasal Swab ordered 10/31 Chest x-ray ordered 10/31 ID consult 11/01 Jamal Lucas ID consult p2 - Check Procalcitonin (This form is maintained as a part of the permanent medical record) 2014 [employer]. All Rights Reserved [email or web address] [email or web address]
--- NOTE | 2019-11-09 11:16 | DIS ---
DATE OF ADMISSION: 10/31/2019 DATE OF DISCHARGE: 11/08/2019 HOSPITAL COURSE: Ms. Denson is a 54-year-old female with a medical history of recently diagnosed strep throat, hypothyroidism, migraines, and hypertension, who presented with a fever, productive cough, and diffuse body aches. She was diagnosed with influenza and was started on oseltamivir; however, her course was complicated by progressively worsening hypoxia as well as recurrent fevers. Chest x-ray also progressively worsened and it was suspected that she had superimposing bacterial infections, so she was treated with broad-spectrum antibiotics. Both Infectious Disease and Pulmonology were consulted and it was agreed that her progressive worsening may have been a sequelae of influenza inflammation. Pulmonology recommended to start the patient on steroid and she responded promptly to the steroids and improved significantly on the day of discharge, she was afebrile for several days, hemodynamically stable and saturating in the high 90s on room air. PHYSICAL EXAMINATION: VITAL SIGNS: Unremarkable. GENERAL: On exam, she was alert and oriented x3 and in no apparent distress. HEENT: Had no submandibular, neck, posterior neck, or anterior neck lymphadenopathy. CARDIAC: Regular rate and rhythm. No gallops or murmurs. LUNGS: No wheezing or crackles. She did have mild inspiratory rales throughout that were significantly improved compared to a few days prior to discharge. ABDOMEN: Nondistended, nontender. Normal bowel sounds. No guarding. EXTREMITIES: She had bilateral mild pitting edema up to mid tibial level. NEUROLOGIC: She had labile mood after starting her on steroids, alert and oriented x3. ASSESSMENT AND PLAN: Ms. Denson is a 54-year-old female,who presented with a severe case of influenza pneumonia. She remained in the hospital for 8 days during which she developed mild hypoxic respiratory failure despite proper treatment of the influenza. However, it was deemed to be a sequela of the inflammation that is caused by influenza pneumonia. After steroids were started, the patient significantly improved and was discharged home on oseltamivir to complete the treatment of 14 days as well as oral doxycycline and tapered dose of steroids. Followup appointments with her primary care physician were made within 3 days of discharge. Job ID: [id number]
--- NOTE | 2019-11-14 18:25 | PQF ---
DANTE SO, ADAM [id number]- [id number] CLINICAL DOCUMENTATION CLARIFICATION FORM: POST DISCHARGE Addendum to original discharge summary date: ____ Late entry note date: __ DATE:11/14/2019 ATTN: Adam Diamond Please exercise your independent, professional judgment in responding to the clarification form. Clinical indicators are provided on the bottom of this form for your review In your clinical opinion based on clinical findings below, can you please specify acuity of Hypoxic Respiratory failure if: Please check appropriate box(s): [ x ] Acute [ ] Chronic [ ] Acute on Chronic [ ] Other diagnosis In addition, please specify: Present on Admission (POA): [x ] Yes [ ] No [ ] Unable to determine For continuity of documentation, please document condition throughout progress notes and discharge summary. Thank You. CLINICAL INDICATORS - SIGNS / SYMPTOMS / LABS Vital signs 10/31 BP 111/54, Pulse 131. Resp 23, Temp 102.2, O2 sat 87% ED notes p2 10/31 Pt did meet Criteria ED notes p11 10/31 Hypoxia, Flu H&P p1 10/31 Shanna LICENSING REGISTRATION EXAMINER-C Pt reports developing fever last night, Tmax 103F and productive cough. Spouse reports that she was also lethargic at that time H&P p1 10/31 Shanna LICENSING REGISTRATION EXAMINER-C recently diagnose with strep throat infection presents to ED for Fever and cough H&P p4 10/31 Shanna LICENSING REGISTRATION EXAMINER-C Sepsis most likely secondary to Flu A Hospitalist p6 11/03 Dr Kim Sepsis due to Influenza with CA Pneumonia ? Gramnegative Hospitalist p6 11/04 Dr Oakley persistent fever likely due to inflammatory sequelae of influenza pneumonia rather than bacterial infection. Bacterial infection workup negative so far. Discharge summary p1 11/08 Dr Oakley She remained in [facility] for 8 days during which she developed mild hypoxic respiratory failure despite proper treatment of influenza RISK FACTORS H&P p4 10/31 Influenza A H&P p4 10/31 Dehdyration H&P p4 10/31 Hypothyroidism H&P p4 10/31 HTN Hospitalist p6 11/03 Pneumonia TREATMENTS NOV 19 IV Cefepime 1gm NOV 19 Tamiflu 75 mg po NOV 19 Robitussin 200 mg po NOV 19 IV Vancomycin 1.25 gm NOV 19 DuoNeb 3ml Neb NOV 19 IV Azithromycin 500mg NOV 19 Vibramycin 100mg po BID NOV 19 Prednisone 40 mg po Respiratory Panel 4L of Oxygen Chest x-ray ordered 10/31 (This form is maintained as a part of the permanent medical record) 2014 [employer] All Rights Reserved Felicitas [email or web address]
== END 2019-11-08 16:56 | disposition home or self-care (01) | DRG 193 ==
LOC: ERS 02:47 → OBSVTOIN 06:40 → ERHOLD 06:40 → T4-A 15:26
PROVIDERS: ADMIT Internal Medicine; ATTEND Internal Medicine
DX: J10.01 Influenza due to other identified influenza virus with the same other identified influenza virus pneumonia (principal); J96.01 Acute respiratory failure with hypoxia; Q60.0 Renal agenesis, unilateral; E86.0 Dehydration; E03.9 Hypothyroidism, unspecified; G43.909 Migraine, unspecified, not intractable, without status migrainosus; I10 Essential (primary) hypertension; F41.9 Anxiety disorder, unspecified; Z28.21 Immunization not carried out because of patient refusal; Z88.5 Allergy status to narcotic agent; Z88.8 Allergy status to other drugs, medicaments and biological substances; Z79.899 Other long term (current) drug therapy; Z90.710 Acquired absence of both cervix and uterus
CPT/HCPCS: 36415; 71045; 71046; 80048; 80053; 80202; 81003; 83605; 83735; 84145; 84484; 85025; 87040; 87086; 87149; 87449; 87804; 87899; 93005; 94640; 96361; 96374; J0456; J0692; J1885; J1940; J2185; J2405; J2920; J3370; J3475; J3490; J7050; J7512; J7620; Q0162

== ENCOUNTER 2020-01-03 09:54 | Outpatient (CLI) | payer MEDICARE ==
--- NOTE | 2020-01-03 11:45 | RAD ---
CHESST 2 VIEWS: Date: 01/03/2020 HISTORY: Dyspnea. COMPARISON: 11/01/2019. FINDINGS: Heart size is within normal limits. Mild stable biapical pleural thickening. No confluent pneumonia, overt edema, or pleural effusion. IMPRESSION: Stable chest. Mild stable apical pleural thickening. Atherosclerosis of aorta. No significant new pro cess. POS: C
== END 2020-01-03 09:55 | disposition home or self-care (01) ==
LOC: RAD 09:54
PROVIDERS: ATTEND Internal Medicine Critical Care Medicine
DX: R06.00 Dyspnea, unspecified (principal); I70.0 Atherosclerosis of aorta; J92.9 Pleural plaque without asbestos
CPT/HCPCS: 71046

== ENCOUNTER 2020-01-24 13:59 | Outpatient (CLI) | payer MEDICARE ==
--- NOTE | 2020-01-24 17:41 | MRI ---
MRI OF RIGHT KNEE PERFORMED WITHOUT CONTRAST ENHANCMENT: 01/24/20 HISTORY: Knee pain. No recent trauma. There is considerable motion artifact on this examination which degrades detail. There is increased signal change within an enlarged appearing ACL consistent with mucoid degeneration . It is felt to be intact. The posterior cruciate ligament is intact. The lateral meniscus has a normal shape. There is some increased signal change along the superior art icular surface of the junction of the anterior horn and body of the lateral meniscus. This is directl y adjacent to an area of chondromalacia change and subchondral marrow edema consistent with articular surface tear in this region. The medial meniscus shows some slight truncation to the meniscal root. There is meniscal protrusion of the body of the meniscus with a truncated free edge and meniscal tiss ue displaced more to the meniscotibial recess probably a combination of a flap type tear and protrusi on related to some generalized loose of hoop strength to the meniscus. This is associated with sever e medial compartment joint space narrowing and chondromalacia change. Prominent marrow edema changes along the anterior edge of the tibia. Some regions of the cortex is slightly irregular. This may repr esent stress type reaction. Directly anterior to this is fluid or edema change. The medial as well as lateral collateral ligaments and iliotibial band regions are unremarkable. Focus of osteonecrosis is seen on the posterior articular surface of the lateral femoral condyle. There is marked chondromalacia changes with articular cartilage thinning in both the medial and later al facets of the patella. The patella is laterally subluxed. There is also changes of the articular c artilage loss related to the trochlear groove. The medial and lateral patellar retinaculum and quadr iceps and patellar tendons are normal in appearance. IMPRESSION: 1. Mucoid degeneration of the ACL. 2. Severe medial compartment joint space narrowing. This is associated with meniscal protrusion of the body of the meniscus related to loose of hoop string and probably some element of a flap type tear. Also associated with this is marked marrow edema change of the anterior margin of the tibia wit h cortical irregularity and edema directly adjacent to the tibia in this region. This is most compati ble with stress type reaction and what appears to represent a stress fracture developing in this area . 3. Articular surface fraying of the junction of the anterior horn and body of the lateral menisc us associated with an area of articular cartilage loss involving the lateral femoral condyle. 4. Joint effusion with Kapadia's cyst. 5. 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 POS: MARIA TERESA
== END 2020-01-24 14:00 | disposition home or self-care (01) ==
LOC: BICMRI 13:59
PROVIDERS: ATTEND Anesthesiology
DX: M25.561 Pain in right knee (principal); M17.11 Unilateral primary osteoarthritis, right knee; M25.461 Effusion, right knee; M71.21 Synovial cyst of popliteal space [Baker], right knee

== ENCOUNTER 2025-06-05 16:30 | Inpatient (IN) | payer MEDICARE ==
[~2025-06-05 16:30] MED LIST: Iopamidol-370 76% 500 ML MDV (1 ML CHARGE) ONE
[2025-06-05 19:47] LABS: #Basophils 0.03 10x3/uL (0.0-0.2); #Eosinophils Less than 0.03 10x3/uL (0.0-0.7); #Monocytes 1.03 10x3/uL (0.11-0.59); #Neutrophils 10.77 10x3/uL (1.40-6.50); %Basophils 0.2 % (0.0-1.0); %Eosinophils 0.1 % (0.0-10.0); %Lymphocytes 13.8 % (21.0-51.0); %Monocytes 7.4 % (0.0-10.0); %Neutrophils 77.8 % (42.0-75.0); Hematocrit 43.3 % (36.0-47.0); Hemoglobin 14.0 g/dL (12.0-16.0); Mean Corpuscular Hemoglobin 29.5 pg (27.0-31.0); Mean Corpuscular Volume 91.4 fL (78.0-98.0); Platelet Count 158 10x3/uL (130-400); Red Blood Cell (RBC) Count 4.74 mill/uL (4.20-5.40); White Blood Cell (WBC) Count 13.84 10x3/uL (4.8-10.8)
[2025-06-05 20:01] LABS: Lipase 18 U/L (8-78); Magnesium 1.9 mg/dL (1.6-2.6)
[2025-06-05 20:02] LABS: Acetaminophen Less than 10 mcg/mL (Less than 10); Salicylate Less than 8.0 mg/dL (Less than 8.0)
[2025-06-05 20:04] LABS: Actual Bicarbonate (HCO3v) 25.5 mEq/L (22-28); Base Excess 1.0 mEq/L (-2.0 to +3.0); Calcium, Ionized (venous) 1.09 mmol/L (1.16-1.32); Chloride (VBG) 101 mmol/L (98-106); Hematocrit-VBG 44 % (36.0-47.0); Hemoglobin (Hb) 15.1 g/dL (11.7-16.0); Potassium (VBG) 4.21 mmol/L (3.70-5.30); Sodium 136 mmol/L (133-146)
[2025-06-05 20:05] LABS: INR-International Normal Ratio 1.1; PTT 27.6 sec (22.9-36.1); Prothrombin Time 14.1 sec (12.0-14.7)
[2025-06-05 20:13] LABS: ALT (SGPT) 14 U/L (Less than 34); AST (SGOT) 19 U/L (11-34); Albumin 3.3 g/dL (3.1-4.5); Alkaline Phosphatase 99 U/L (40-110); Anion Gap 15 mmol/L (10-20); BUN (Urea Nitrogen) 12 mg/dL (9.8-20.1); Bilirubin, Total 0.7 mg/dL (0.3-1.2); Calc. Creatinine Clearance 0 mL/min (70-130); Calcium 9.0 mg/dL (7.8-10.44); Carbon Dioxide 24 mmol/L (23-31); Chloride 104 mmol/L (98-107); Globulin 3.1 g/dL (2.4-3.5); Glucose 108 mg/dL (80-115); Potassium 4.5 mmol/L (3.5-5.1); Sodium 138 mmol/L (136-145)
[2025-06-05 20:15] LABS: D-Dimer Test 2.45 mcg/mL (0.27-0.43)
[2025-06-05] MEDS ORDERED: Acetaminophen 500 MG TAB ONE (20:39)
[2025-06-05] MEDS ORDERED: Ketorolac Tromethamine 30 MG (1 mL) VIAL ONE (20:40)
[2025-06-05] MEDS ORDERED: cefTRIAXone (ROCEPHIN) 2 GM VIAL ONE (20:40)
[2025-06-05] MEDS ORDERED: Ondansetron PF 4 MG/2 ML Vial ONE (20:40)
[2025-06-05] MEDS ORDERED: Azithromycin 500 MG VIAL ONE (21:49)
[2025-06-05] MEDS ORDERED: metroNIDAZOLE 500 MG (100 mL) BAG ONE (23:27)
[2025-06-05] MEDS ORDERED: Guaifenesin DM 100-10/5 ML UDCUP PO PRN (23:34)
[2025-06-06 02:25] LABS: Bacteria/HPF None Seen HPF (None Seen); CAUTI Indications for Culture Alt mental st,lethar; Glucose, Urine (Dipstick) Normal (Negative); Leukocyte Negative Leu/uL (Negative); Protein, Urine (Dipstick) 10 mg/dL (Neg-Trace); RBC/HPF 0-3 HPF (0-3); Specific Gravity, Urine 1.037 (1.002-1.036); WBC/HPF 0-3 HPF (0-3)
[2025-06-06 02:28] LABS: Urine Culture Reflex No No
[2025-06-06 02:39] LABS: Legionella Urinary Ag Negative (Negative); Strep pneumo Urine Ag NEGATIVE (NEGATIVE)
[2025-06-06 02:45] LABS: Cocaine Metabolite Screen Negative (Negative); THC/Cannabinoid Screen Negative (Negative); Tricyclic Screen PRELIM POSITIVE (Negative)
[2025-06-06] MEDS: QUEtiapine 100 MG TAB PO SCH ×2 (02:49→20:27)
[2025-06-06 02:57] VITALS: BMI 32.4
[2025-06-06] MEDS: Ondansetron PF 4 MG/2 ML Vial IVP PRN (05:51)
[2025-06-06] MEDS: Acetaminophen 325 MG TAB PO PRN (05:51)
[2025-06-06 05:53] LABS: #Basophils 0.04 10x3/uL (0.0-0.2); #Eosinophils 0.08 10x3/uL (0.0-0.7); #Monocytes 1.29 10x3/uL (0.11-0.59); #Neutrophils 9.89 10x3/uL (1.40-6.50); %Basophils 0.3 % (0.0-1.0); %Eosinophils 0.6 % (0.0-10.0); %Lymphocytes 17.9 % (21.0-51.0); %Monocytes 9.3 % (0.0-10.0); %Neutrophils 71.5 % (42.0-75.0); Hematocrit 39.5 % (36.0-47.0); Hemoglobin 12.8 g/dL (12.0-16.0); Mean Corpuscular Hemoglobin 30.1 pg (27.0-31.0); Mean Corpuscular Volume 92.9 fL (78.0-98.0); Platelet Count 128 10x3/uL (130-400); Red Blood Cell (RBC) Count 4.25 mill/uL (4.20-5.40); White Blood Cell (WBC) Count 13.83 10x3/uL (4.8-10.8)
[2025-06-06 06:09] LABS: Anion Gap 14 mmol/L (10-20); BUN (Urea Nitrogen) 12 mg/dL (9.8-20.1); Calc. Creatinine Clearance 104 mL/min (70-130); Calcium 8.4 mg/dL (7.8-10.44); Carbon Dioxide 24 mmol/L (23-31); Chloride 105 mmol/L (98-107); Glucose 98 mg/dL (80-115); Potassium 4.0 mmol/L (3.5-5.1); Sodium 139 mmol/L (136-145)
[2025-06-06] MEDS: Divalproex Sodium 250 MG ER.TAB PO SCH (09:11)
[2025-06-06] MEDS: Furosemide 20 MG TAB PO SCH (09:11)
[2025-06-06] MEDS: Famotidine 20 MG TAB PO SCH (09:11)
[2025-06-06] MEDS: Sertraline 100 MG TAB PO SCH (09:11)
[2025-06-06] MEDS: Baclofen 10 MG TAB PO SCH (09:12)
[2025-06-06] MEDS: Pregabalin 50 MG CAP PO SCH (09:12)
[2025-06-06] MEDS: valACYclovir 500 MG TAB PO SCH (09:12)
[2025-06-06 09:45] LABS: Influenza A by NAA Not Detected (NotDetected); Influenza B by NAA Not Detected (NotDetected); SARS-CoV-2 NAA Rapid Test Not Detected (NotDetected)
[2025-06-06] MEDS: Azithromycin 500 MG in Sodium Chloride 0.9% 250 ML 250 ML IVPB SCH (20:29)
[2025-06-06] MEDS: cefTRIAXone\\ROCEPHIN 1 GM in Sodium Chloride 0.9% 100 ML IVPB SCH (20:29)
[2025-06-07 07:11] LABS: #Basophils 0.03 10x3/uL (0.0-0.2); #Eosinophils 0.04 10x3/uL (0.0-0.7); #Monocytes 0.79 10x3/uL (0.11-0.59); #Neutrophils 8.38 10x3/uL (1.40-6.50); %Basophils 0.3 % (0.0-1.0); %Eosinophils 0.3 % (0.0-10.0); %Lymphocytes 20.0 % (21.0-51.0); %Monocytes 6.8 % (0.0-10.0); %Neutrophils 72.2 % (42.0-75.0); Hematocrit 37.9 % (36.0-47.0); Hemoglobin 12.1 g/dL (12.0-16.0); Mean Corpuscular Hemoglobin 29.7 pg (27.0-31.0); Mean Corpuscular Volume 92.9 fL (78.0-98.0); Platelet Count 139 10x3/uL (130-400); Red Blood Cell (RBC) Count 4.08 mill/uL (4.20-5.40); White Blood Cell (WBC) Count 11.61 10x3/uL (4.8-10.8)
[2025-06-07 07:30] LABS: Anion Gap 13 mmol/L (10-20); BUN (Urea Nitrogen) 8 mg/dL (9.8-20.1); CRP, High Sensitivity at Bryan 14.74 mg/dL (< or = 0.5); Calc. Creatinine Clearance 118 mL/min (70-130); Calcium 8.7 mg/dL (7.8-10.44); Carbon Dioxide 24 mmol/L (23-31); Chloride 108 mmol/L (98-107); Glucose 82 mg/dL (80-115); Magnesium 2.0 mg/dL (1.6-2.6); Potassium 3.9 mmol/L (3.5-5.1); Sodium 141 mmol/L (136-145)
[2025-06-08 06:03] LABS: #Basophils 0.04 10x3/uL (0.0-0.2); #Eosinophils 0.19 10x3/uL (0.0-0.7); #Monocytes 0.87 10x3/uL (0.11-0.59); #Neutrophils 5.82 10x3/uL (1.40-6.50); %Basophils 0.4 % (0.0-1.0); %Eosinophils 1.9 % (0.0-10.0); %Lymphocytes 28.5 % (21.0-51.0); %Monocytes 8.9 % (0.0-10.0); %Neutrophils 59.7 % (42.0-75.0); Hematocrit 38.4 % (36.0-47.0); Hemoglobin 12.7 g/dL (12.0-16.0); Mean Corpuscular Hemoglobin 30.8 pg (27.0-31.0); Mean Corpuscular Volume 93.0 fL (78.0-98.0); Platelet Count 141 10x3/uL (130-400); Red Blood Cell (RBC) Count 4.13 mill/uL (4.20-5.40); White Blood Cell (WBC) Count 9.76 10x3/uL (4.8-10.8)
[2025-06-08 06:13] LABS: Anion Gap 13 mmol/L (10-20); BUN (Urea Nitrogen) 9 mg/dL (9.8-20.1); Calc. Creatinine Clearance 113 mL/min (70-130); Calcium 8.4 mg/dL (7.8-10.44); Carbon Dioxide 24 mmol/L (23-31); Chloride 110 mmol/L (98-107); Glucose 82 mg/dL (80-115); Potassium 3.7 mmol/L (3.5-5.1); Sodium 143 mmol/L (136-145)
[2025-06-08 06:14] LABS: CRP, High Sensitivity at Bryan 6.88 mg/dL (< or = 0.5)
[2025-06-08 08:44] VITALS: TEMP 97.7
[2025-06-08 13:17] VITALS: BP 116/73
== END 2025-06-08 14:55 | disposition home or self-care (01) | DRG 871 ==
LOC: ERS 16:30 → T4-B 23:34
PROVIDERS: ADMIT Internal Medicine; ATTEND Internal Medicine
DX: A41.9 Sepsis, unspecified organism (principal); G93.41 Metabolic encephalopathy; J18.9 Pneumonia, unspecified organism; Q60.0 Renal agenesis, unilateral; R65.20 Severe sepsis without septic shock; E03.9 Hypothyroidism, unspecified; F41.9 Anxiety disorder, unspecified; I10 Essential (primary) hypertension; G43.909 Migraine, unspecified, not intractable, without status migrainosus; M54.9 Dorsalgia, unspecified; Z98.890 Other specified postprocedural states; Z90.710 Acquired absence of both cervix and uterus; Z88.8 Allergy status to other drugs, medicaments and biological substances; Z88.1 Allergy status to other antibiotic agents; Z88.5 Allergy status to narcotic agent; G89.29 Other chronic pain
CPT/HCPCS: 36415; 36416; 70450; 71045; 71275; 80048; 80053; 80306; 80307; 81001; 82805; 83605; 83690; 83735; 84100; 84145; 84484; 85025; 85379; 85610; 85730; 86141; 87040; 87426; 87449; 87636; 87899; 93005; 94760; 96374; 96375; J0456; J0696; J1885; J7050; J7120; Q9967